=== PATIENT | female | born 1960 | race Caucasian/White ===

== ENCOUNTER → 2022-08-02 | Outpatient (CLI) | payer OTHER, SELFPAY ==
--- NOTE | 2022-08-02 08:22 | CR.ITP_ITS ---
Diagnosis - General Information Admitting Diagnosis: S/P NSTEMI myocardial Infarction, Left Sublclavian stenosis w/stenting, PCI w/coronary stenting. Secondary Diagnosis: Bilateral Carotid Stenosis, Peripheral Vascular Disease Personal Learning Style:: Audio/Visual, Written Barriers to Learning: Vision Impairment Stage of change r/t lifestyle modifications:: Action Gave educational material for:: Treating Heart Disease, Emotions & Heart Disease, Stress Management & Relaxation, Sleep Disorders & Heart Disease, How The Heart Works, What it means to have Heart Disease, How Coronary Artery Dis ease is Diagnosed, Heart Procedures, What Heart Medications Do, Risk Factors & Modifications, Living an Active Life, Nutrition - Education/Goals Individual Counseling: Initial Assessment: Nicotine/Smoking, Abnormal Cholesterol Levels, High Blood Pressure, Overweight/Obesity Cardiac Rehabilitation Goals: 1. Maintain the individual as the primary focus of care. 2. To improve the patient's quality of life. 3. Identification of cardiac risk factors and provide cardiac risk factor management. 4. Enhance the psychosocial status of the patient. 5. Reconditioning enough to allow the patient to resume customary activities. 6. Control symptoms of cardiac disease Personal Goals: Initial Assessment: Improve energy level, Get back to work, or to resume activities faster, Improve muscle strength and endurance Scale for measuring improvement of personal goals: Enter appropriate number in Comments. 2 = Unchanged. 3 = Slightly Better. 4 = Moderate Improvement. 5 = Met my Goal - Diagnosis & Disease Process Outcomes/Goals: Pt IDs own risk factors & lifestyle modifications by Session 10, Verbalizes symptoms of angina & response by session 3., Pt independently manages Plan/Interventions: Assist Pt to ID & engage in lifestyle modification to reduce CVD risk, Instruct on individual risk factors, Review symptoms of angina & emergency actions, Review secondary diagnosis & identify educational needs. - Safety Referral to Physical Therapy: No Referral to [facility] Case Management: No Fall Risk Assessed:: Yes Assistive Devices:: None Exercise - Initial Assessment - Visit Date of Eval: 08/02/22 Session #:: 0 - Pre-cardiac rehab evaluation Mets: Pre-: >7 METS for 30 minutes by discharge - Physician Prescribed Exercise Modalities: Treadmill, Airdyne, NuStep Frequency: 3x/week for 12 weeks [36 sessions] Intensity: 60-80% of age predicted maximum heart rate reserve Duration: 30 - 45 minutes Current METSs:: 3.0 Target Heart Rate:: 103-119 Resting Blood Pressure: 111/52 EKG Type: Sinus Rhythm (hx of paroxysmal atrail fibrillation noted) - Outcomes & Goals Goals:: Verbalizes understanding of THR, RPE & goal METS by session 6, Documents in home exercise log/reports 30 min aerobic 5 day/wk by DC, Demonstrates accurate pulse taking by DC - Intervention & Plan Exercise Program Goals: Instruct on personal THR & RPE, Instruct on MET level & personal MET goal, Show patient to take own pulse /validate performance until accurate, Instruct on home exercise - Physical Activity Home Exercise Physical Activity - Home Exercise: Safe Exercise, Warm-up, Self-monitoring, Cool-Down, Home Exercise > 30 min Daily, Sitting Time <3 hours/daily - Outcomes & Goals Outcomes/Goals: Demonstrates correct Warm-up/exercise Cool-Down (S3) if = 2.5 METs, Verbalizes symptoms of exercise intolerance by Session 3 (S3), Demonstrate safe equipment use (S3) & follows exercise prescrition (6) - Intervention & Plan Plan/Intervention: Instruct warm-up & cool-down if exercising at > 2 METs, Instruct on symptoms of exercise intolerance & actions to take, Instruct & monitor on saf, Assess intial functional capacity & safety risk Nutrition - Initial Assessment - Program Goals Nutrition Program Goals: LDL <100 optimal. 100 - 129 Near optimal. 130 - 159 Borderline High. 160 - 189 High. Total Cholesterol <200 desirable. 200 - 239 Borderline High. >/= 240 High. HDL < 40 Low >/=60 High. Triglycerides <150 desirable. <199 optimal. VlDL 5 - 40. HgbA1C <7%. BMI <25 Patient has diagnosis of Hyperlipidemia (ICD E78)?: Yes - Visit Date of Assessment:: 08/02/22 Session #:: 0 - Pre-cardiac Rehab evaluation - Cholesterol/Lipids (Other Core Measures) Determine presence & major risk factors that modify LDL goal: Cigarette smoking, Hypertension or hypertensive medication, Age men > 45 years; women >/= 55 years Outcomes/Goals: Pt IDs own risk factors & lifestyle modifications by Session 10, Verbalizes symptoms of angina & response by session 3., Pt independently manages Intervention/Plan: Instruct on personal lipid levels & lipid goals/NCEP guidelines, Instruct on cholesterol Referral to dietitian:: Yes - Diabetes (Other Core Measures) Diabetes Type: Not Applicable - Weight Mgt (Other Care) Not Applicable: No Height: 5 ft 2 in Weight:: 207 lb BMI: 37.8 Diagnosis Overweight/Obesity BMI> 30% ICD-10 E66: Yes Diagnosis High BMI/Morbid Obesity BMI> 35% ICD-10 Z68: Yes Outcomes/Goals: Pt sets, maintains & shows weight loss goal & trend during rehab Intervention/Plan: Instruct on ideal BMI & set weight loss goal w/patient, Assist pt to ID & incorporate diet changes for weight loss by S9, Refer to Structured Weight Loss program as appropriate, Encourage goal of using 250- 300dcal per session for weight loss - Healthy Eating Habits Will attend diet classes:: Yes Outcomes/Goals:: Consume diet rich in vegs,fruits,whole grain/high fiber,fish,lean meat, Limit sat/trans fats,cholesterol & added salts & sugars Intervention/Plan:: Assess current eating habits - Education Gave educational materials for:: Healthy eating Nutrition - 30-Day Assessment Nutrition - 60-Day Assessment Nutrition - 90-Day Assessment Nutrition - Final Assessment Core - Initial Assessment - Visit Date of Eval: 08/02/22 Session #:: 0 - Pre-cardiac Rehab evaluation - Medication Compliance Preventative Medication(s):: Aspirin, Clopidogrel/P2Y12 inhibit, Statin/lipid, Beta alysha H/O mental health issues: depression, anxiety, or addiction?: No Doesn?t believe in the benefits of treatment?: No Believes medications are unnecessary or harmful?: No Has a concern about medication side effects?: No Expresses concern over the cost of medications?: No Outcomes/Goals: Verbalizes medications,desired effect & common side effects @ DC, Pt self-reports following medication regimen, Keeps card in wallet w/medications listed by DC Interventions/plans: Instruct on medication effects & side effects, Review medication list w/patient every two weeks, Instruct importance of taking meds as ordered & assist problem solving - Tobacco Use Tobacco Use: Cigarettes How many cigarettes do you smoke per day?: 20 - recently quit 06/23/2022 Do you use smokeless tobacco?: No Outcomes/Goals: Smoking cessation achieved or maintained by discharge, Identify aids/strategies for achieving smoking cessation by session 6 Interventions/plan: Instruct on effects of smoking & provide smoking cessation resource, Assist pt to set quit date & provide encouragement, Assist pt to develop strategies to achieve/maintain quit date, Assist pt w/nicotine replacement & medication for cessation success - Currently using Nicoderm CQ 7mg patch 24Hours - Hypertension Hypertension Diagnosis:: Hypertension ICD-10 I10 Resting Blood Pressure:: 111/52 [employer] Hypertension Guidelines: [place] [employer] Hypertension Guidelines. Normal BP Less than 120/80. Elevated BP 120/80. Hypertension Stage 1: BP 130-139/80-89. Hypertesnion Stage 2: BP 140 or higher/90 or higher. Hypertension Crisis: BP higher than 180/120 Outcomes/Goals: Able to verbalize/achieve optimal blood pressure <130/80, Incorporates diet changes & exercise for blood pressure control by DC Interventions/plan: Instruct on optimal blood pressure, hypertension & medications, Instruct on effects of sodium, alcohol, stress, exercise &hypertension - Tobacco Cessation Referral Smoking Cessation Referral:: No Individual Education/Counseling:: No Education Schedule Given:: Yes Core - 30-Day Assessment Core - 60-Day Assessment Core - 90 Day Assessment Core - Final Assessment Psychosocial - Initial Assess - VIsit Date of Eval: 08/02/22 Session #:: 0 - Pre-cardiac rehab Evaluation Not Applicable: Yes History of previous Mental disease:: No - Psychosocial Test Tool Used:: Reagan Blackwood QOL Cardiac, PHQ-9 Questionnaire phq-9 Severity: Severity. 1-4 Minimal Depression. 5-9 Mild Depression. 10-14 Moderate Depression. 15-19 Moderately Sever Depression. 20-27 Severe Depression. Rule: - Referral to Behavioral Health PS - Interventions: Yes Attend Stress Management Classes, No Referral to Behavioral Health if PHQ-9 score >9:, No Referral to [facility], No Referral to Physician if PHQ-9 if score is 5-9: - Outcomes/Goals: See list Psychosocial Outcomes/Goals:: ID's personal stressors & 2 strategies to manage stress by discharge - Intervention/Plan: See List Interventions/Plan:: Assess stressors,coping strategies & signs of derpression on admission, Instruct/assist pt to develop coping & personal stress Mgt strategies, Instruct patient to recognize signs & symptoms of depression, Instruct patient to recog Psychosocial - 30-Day Assess Psychosocial - 60-Day Assess Psychosocial - 90-Day Assess Psychosocial - Final Assessmen Patient Health Questionnaire Initial Assessment 1. Little interest or pleasure in doing things: Not at all 2. Feeling down, depressed, or hopeless: Not at all 3. Trouble falling or staying asleep, or sleeping too much: Nearly every day 4. Feeling tired or having little energy: More than half the days 5. Poor appetite or overeating: Not at all 6. Feeling bad about yourself -- or that you are a failure or have let yourself or your family down: Not at all 7. Trouble concentrating on things, such as reading the newspaper or watching television: Not at all 8. Moving or speaking so slowly that other people could have noticed. Or the opposite - being so fidgety or restless that you have been moving around a lot more than usual: Not at all 9. Thoughts that you would be better off , or of hurting yourself in some way: Not at all How difficult have these problems made it for you to do your work, take care of things at home, or get along with other people?: Not difficult at all Total Score: 5 YOHAN-Q SV Test - Statements CAD is a disease of the arteries in the heart: False Examples of risk factors for heart disease: True Angina is chest pain or discomfort: True The benefits of resistance training include: True Eating more meat and dairy products: False Anti-platelet medications such as aspirin are important: True The only effective way to manage stress: False An exercise warm-up slowly increases heart rate: True Prepared, processed foods usually have high sodium: True Depression is common after a heart attack: True The statin medications lower cholesterol: True To control blood pressure, lower the amount of sodium: True If someone gets chest discomfort during walking: False Transfats are partially hydrogenated vegetable oils: True Sleep apnea that is not treated increases the risk: False To control cholesterol, one should become a vegetarian: False Someone knows if he/she is exercising at the right level: True Diabetes cannot be prevented with exercise & health eating: False Stress is a large risk for heart attack: True A diet that can help lower blood pressure is rich in: True - Total Score Total Correct Responses: 20 Self-Efficacy Initial Assessment We would like to know how confident you are in doing certain activities. Please select your confidence level for:: Select your confidence level for the following using the scale 1-10 where 1 is not at all confident and 10 is totally confident. Your score is the average of all 6 responses. Fatigue: How confident are you that you can keep the fatigue caused by your disease from interfering with the things you want to do? Select Number: 9 Physical Discomfort or Pain: How confident are you that you can keep the physical discomfort or pain of your disease from interfering with the things you want to do? Select Number: 9 Emotional Distress: How confident are you that you can keep the emotional distress caused by your disease from interfering with the things you want to do? Select Number: 10 Other Symptoms or Health Problems: How confident are you that you can keep other symptoms or health problems from interfering with the things you want to do? Select Number: 10 Different Tasks and Activities: How confident are you that you can do the different tasks and activities needed to manage your health condition so as to reduce your need to see a doctor? Select Number: 1 Medication: How confident are you that you can do things other than just taking medication to reduce how much your illness affects your everyday life? Select Number: 1 Total Score:: 6 Nutrition Survey - Nutrition Survey Initial Have you lost >10 lbs over the past 2 months without trying?: No Are you following a special diet at home for diabetes, low fat, or low salt?: No Are you interested in meeting with a dietitian for help understanding your diet?: No Do you eat less than 3 meals a day?: Yes Do you eat fatty meats (costa, sausage, ribs, etc), fried foods, desserts, large amounts of salad dressings, margarine, butter, or cheese most days?: Yes Do you have food allergies? [Enter types in comment field]: No Do you eat in restaurants more than 3 times a week?: No Do you season food with salt, seasoning salt, or garlic salt?: No Do you used canned, boxed, frozen meals, or soups, seasoning packets?: Yes Total Score:: 3
--- NOTE | 2022-08-02 08:22 | PCM.CR.HP2 ---
CR - History & Physical - General Arrival date:: 08/02/22 - Arrival time:: 08:22 Date of Referral:: 07/19/22 Date of CR Evaluation:: 08/02/22 Referring Physician: Dr. Marah Casanova ([facility]) Primary Diagnosis: NSTEMI, PCI w/coronary stenting - History of Present Cardiac Event Onset Date: Enter Onset Date of cardiac illnesses in Comment field below Acute Myocardial Infarction within 12 months:: Yes - 08/02/2022 PTCA or coronary stenting:: Yes - 08/02/2022 Interventions with present event:: Also had left subclavian stenting, ultrasound of aortic valve scheduled Were there any complications?: Blood loss unanticipated, readmitted 2 weeks discharge for bronchitis - Sleep Disorder Evaluation Hx of Sleep Apnea: No Do you snore loudly (louder than talking or can be heard through closed doors)?: Yes Do you often feel tired/ fatigued/ sleepy during daytime?: Yes Has anyone observed you stop breathing during sleep?: No History of Hypertension (for STOP score): Yes STOP Results: Positive - Medications Home Medications: Ambulatory Orders Medication Instructions Recorded acetaminophen 325 mg tablet 325 - 650 mg PO Q6H PRN Pain 08/02/22 (Tylenol) aspirin 81 mg tablet 81 mg PO DAILY 08/02/22 carvedilol 12.5 mg tablet 12.5 mg PO BID 08/02/22 ezetimibe 10 mg tablet (Zetia) 10 mg PO DAILY 08/02/22 furosemide 20 mg tablet (Lasix) 20 mg PO DAILY PRN Edema 08/02/22 isosorbide mononitrate 30 mg 30 mg PO DAILY 08/02/22 tablet,extended release 24 hr losartan 50 mg tablet (Cozaar) 50 mg PO DAILY 08/02/22 nicotine 7 mg/24 hr daily 1 patch transdermal Q24H 08/02/22 transdermal patch (Nicoderm CQ) - Allergies Allergies/Adverse Reactions: Allergies morphine Allergy (Verified 08/02/22 08:34) Rash niacin Allergy (Verified 08/02/22 08:34) Pain in joints Advanced Directives - Advanced Directives 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 - is her POA for Healthcare Living Will: Yes Advance Directives Information Provided: No Advance Directives on File: No DNR Order?:: No - MOLST See MOLST form: No Past Medical History - Covid-19 Screening Fever: No Unexplained muscle aches: No Current respiratory symptoms: No Upper respiratory infections symptoms: No Gastro-intestinal symptoms: No Uls-Foyp-Ddwyah symptoms: No Has tested positive for COVID-19 in last 30 days: No Date of testin08/02/22 - not vaccinated Had contact w/person w/symptoms or Covid-19 (+) last 14 days: No Has High Risk Exposures ID'd by Health dept/Inf Control team: No 65 years or older:: No Lives in Assisted Living facility:: No Has a chronic lung disease or moderate to severe asthma:: No Has a serious heart condition:: Yes Immunocompromised:: No Severely obese (Body Mass Index of 40 or higher):: No Diabetic:: Yes Has chronic kidney disease undergoing dialysis:: Yes Has liver disease:: No - Past Medical Illness Medical History: Past Medical History (Last Updated 08/02/22 @ 08:53 by Julio Tobias CRT, ORAL HYGIENIST, BS) Aortic stenosis I35.0 Bilateral carotid artery stenosis without cerebral infarction I65.23 Coronary artery disease I25.10 Hypertension I10 Infrarenal abdominal aortic aneurysm (AAA) without rupture I71.43 Mixed hyperlipidemia E78.2 Non-STEMI (non-ST elevated myocardial infarction) Onset Date: ~06/23/22 I21.4 Paroxysmal A-fib I48.0 Peripheral vascular disease I73.9 Statin intolerance Z78.9 Subclavian artery stenosis, left I77.1 Tobacco dependence due to cigarettes F17.210 - Past Surgical History Surgical History: Past Surgical History (Last Updated 08/02/22 @ 08:39 by Julio Tobias CRT, ORAL HYGIENIST, BS) Postsurgical percutaneous transluminal coronary angioplasty (PTCA) status Z98.61 Stented coronary artery Z95.5 Social History - Smoking History Smoking Status: Current every day smoker Years Smokin Packs Smoked per Day: 1 Hx Smoking Cessation Date: 06/23/22 Hx Tobacco Use: Yes Hx Smoking Exposure: Yes - Alcohol Use Alcohol Usage: Yes - rare occasions ([employer] Wine/ - Substance Abuse Hx Substance Use: No - Occupation Occupation (List type of work in comments):: 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 - Hobbies, Recreation, Social Activities Hobbies: Other - Piano, gardening, active in adventism, choir, [employer] studies Recreational Activities: I am able to engage in all my recreational activities - take my time/takes me longer to do them Social Environment - Status Marital Status: - Current Living Arrangements Living Environment:: Spouse - Children How many children do you have?: 2 Do any of your children live nearby?: No - [facility] - Safety Do you feel safe in your surroundings?: Yes - Assistance Do you need any assistance at home?: no Review of Systems - Review of Systems Hints: Right click = Denies ([place]ash). Left click = Reports ([place]) Review of Present Symptoms: Reports: Shortness of Breath at Rest - sometimes, Shortness of Breath with Exertion - usually related to activity; after about 30 minutes gardening heart rate increases and is short of breath, Angina - upper back shoulder mid-spine back; relieves with rest. Very similar to the same pain related to the NSTEMI, Dizziness/Lightheadedness, Fatigue, Heart Arrhythmia/Irregularities - Hx of Atrial Fibrillation (paroxysmal), Appetite - Normal. Denies: Appetite - Special Diet, Sleep - Normal, Sexual Changes - Pain Is Patient Pain Free?: Yes Pain Location: none, back - Low back pain., upper extremity - upper back shoulder mid-spine back; relieves with rest. Very similar to the same pain related to the NSTEMI Risk Factor Assessment - Vital Signs Temperature: 97.9 F Respiratory Rate: 14 Pulse Ox: 95 Blood Pressure: 111/62 - Pulse Pulse Rate: 70 Pulse Rhythm: Regular - Hypertension Blood Pressure Sitting - Left Arm: 111/62 - Obesity Height: 5 ft 2 in Weight:: 207 lb Weight in Pounds: 207.0 lbs Weight Source: Stated by Patient Body Mass Index (BMI): 37.8 Nutritional Referral for Obesity: Yes - Physical Inactivity Physical Inactivity: Reg Exercise 30 min/day - gardening, Recreational activity - [place], adventism activity, bible study - Risk Stratification Risk Guidelines: Lowest Risk: Risk Factor for Dyslipidemia, Risk Factor for Diabetes, Risk Factor for Hypertension, Risk Factor for Sedentary Lifestyle, Risk Factor for Depression, Moderate Risk: Risk Factor for Sedentary Lifestyle, Highest Risk: Risk Factor for Smoking - Recently quit 06/23/2021, Nicoderm 7mg NRT, Risk Factor for Obesity - BMI 37.9 Motivation - Motivation to Participate On a scale of 1 to 10, how prepared are you to commit to attending program?: 7 - Dr. Casanova encouraged me to do this What do you see as barriers to successfully being able to complete the program?: distance and time What do you see as the benefits of succesfully completing the program? In other words, what do you hope to get out of participating in the program?: Make my doctor happy; getting greater stamina Are there issues you are dealing with that will interfere with completing the program?: Series of test in August; depending on outcome may percipitate participation Do you have a spouse or signficant other, family or friends who will help support you to complete the program?: Yes
[2022-08-02 09:17] VITALS: BP 111/62; PULSE 70; RESP 14; TEMP 36.6; O2SAT 95; BMI 37.8
[2022-08-02 09:54] VITALS: BP 111/52; BMI 37.8
== END | disposition home or self-care (01) ==
PROVIDERS: PCP Family Medicine
DX: Z95.5 Presence of coronary angioplasty implant and graft (principal); I71.43 Infrarenal abdominal aortic aneurysm, without rupture; I73.9 Peripheral vascular disease, unspecified; I77.1 Stricture of artery; I48.0 Paroxysmal atrial fibrillation; I21.4 Non-ST elevation (NSTEMI) myocardial infarction; R06.83 Snoring; R53.83 Other fatigue; I10 Essential (primary) hypertension; I35.0 Nonrheumatic aortic (valve) stenosis; I65.23 Occlusion and stenosis of bilateral carotid arteries; I25.10 Atherosclerotic heart disease of native coronary artery without angina pectoris; E78.2 Mixed hyperlipidemia; Z78.9 Other specified health status; F17.210 Nicotine dependence, cigarettes, uncomplicated; R06.02 Shortness of breath; M54.9 Dorsalgia, unspecified; R42 Dizziness and giddiness

== ENCOUNTER 2022-08-10 08:18 | Emergency (ER) | payer OTHER, SELFPAY ==
[2022-08-02 09:54] VITALS: BMI 37.8
[2022-08-10 08:20] VITALS: BP 169/145; PULSE 91; RESP 18; TEMP 36.4; O2SAT 97
[2022-08-10 08:36] VITALS: BMI 38.5
[2022-08-10 08:37] VITALS: BP 134/75; PULSE 88; RESP 20; O2SAT 96; O2SAT 97
--- NOTE | 2022-08-10 08:44 | EKG12_ITS ---
Test Reason : SOB Blood Pressure : / mmHG Vent. Rate : 081 BPM Atrial Rate : 081 BPM P-R Int : 148 ms QRS Dur : 090 ms QT Int : 356 ms P-R-T Axes : 051 044 064 degrees QTc Int : 413 ms Normal sinus rhythm Normal ECG Confirmed by NEAL SALGUERO, KAYDEN ([id number]), assistant editor SD HELM ([id number]) on 08/12/2022 9:33:36 AM Referred By: BB Confirmed By:KAYDEN DE JESUS MD
[2022-08-10 08:46] VITALS: O2SAT 95
--- NOTE | 2022-08-10 08:46 | ED.VIS.DYS ---
HPI History of Present Illness Chief Complaint: Shortness of Breath Detail of Chief Complaint: Wheezing cough. Informant: patient Onset/Context/Timing Onset: Weeks Context: gradual Timing: Intermittent Quality: Positive for Dyspnea on exertion and Wheezing Current Severity: Mild Worsened by: Exertion, Lying flat and Coughing Relieved by: Rest Associated Symptoms cough and green sputum; Negative for fever Chest Pain: Positive for None Narrative Narrative: 62-year-old female has a history of at least 1 PA, CAD, stents hypertension, A-fib, AAA and possible undiagnosed COPD. She had a long smoking history just quit about a month ago. For the last 2 to 3 weeks she has had primarily nonproductive cough at times green sputum. Wheezing and shortness of breath. Today she was in cardiac rehab had an episode and he sent her to the ER to be evaluated. She has had episodes like this before they worked her up with him a cardiac and a PE standpoint. She is never had a DVT or PE. She has had a CTA recently which was negative. She has been treated as a respiratory infection with Zithromax and doxycycline. She has been treated with steroids and inhalers. She has also been treated as possibly a CHF flare. PE Risk Factors: Negative for Cancer, OCP + Smoking + > 35, Prior DVT or PE, Recent immobilization, Recent surgery or Recent travel Prior similar symptoms: Yes Recent Illness/Hospitalization: Yes [facility] Medical History Aortic stenosis Bilateral carotid artery stenosis without cerebral infarction Coronary artery disease Hypertension Infrarenal abdominal aortic aneurysm (AAA) without rupture Mixed hyperlipidemia Non-STEMI (non-ST elevated myocardial infarction) (~06/23/22) Paroxysmal A-fib Peripheral vascular disease Statin intolerance Subclavian artery stenosis, left Tobacco dependence due to cigarettes Home Medications acetaminophen 325 mg tablet (Tylenol) 325 - 650 mg PO Q6H PRN Pain 08/02/22 [History Last Taken Unknown] aspirin 81 mg tablet 81 mg PO DAILY 08/02/22 [History Last Taken Unknown] carvedilol 12.5 mg tablet 12.5 mg PO BID 08/02/22 [History Last Taken Unknown] ezetimibe 10 mg tablet (Zetia) 10 mg PO DAILY 08/02/22 [History Last Taken Unknown] furosemide 20 mg tablet (Lasix) 20 mg PO DAILY PRN Edema 08/02/22 [History Last Taken Unknown] isosorbide mononitrate 30 mg tablet,extended release 24 hr 30 mg PO DAILY 08/02/22 [History Last Taken Unknown] losartan 50 mg tablet (Cozaar) 50 mg PO DAILY 08/02/22 [History Last Taken Unknown] nicotine 7 mg/24 hr daily transdermal patch (Nicoderm CQ) 1 patch transdermal Q24H 08/02/22 [History Last Taken Unknown] Allergy/AdvReac Type Severity Reaction Status Date / Time morphine Allergy Rash Verified 08/02/22 08:34 niacin Allergy Pain in Verified 08/02/22 08:34 joints Surgical History Postsurgical percutaneous transluminal coronary angioplasty (PTCA) status Stented coronary artery Social History Smoking Status: Former smoker ROS ROS ED ROS Narrative Cough, wheezing, shortness of breath. Review of Systems ROS Unobtainable: Denies due to encephalopathy Constitutional Constitutional ED: Denies chills or fever(s) Eyes Eyes: Denies blurry vision ENT ENT ED: Denies ear pain Cardiovascular Cardiovascular: Denies chest pain Respiratory/Chest Respiratory/Chest: Reports cough and dyspnea Gastrointestinal Gastrointestinal: Denies abdominal pain Genitourinary Genitourinary ED: Denies dysuria Musculoskeletal Musculoskeletal: Denies arthralgias Integumentary Denies abscess Neurologic Neurologic: Denies headache(s) Psychiatric Psychiatric: Denies anxiety Endocrine Endocrinology: Denies cold intolerance Hematologic/Lymphatic Hematologic/Lymphatic: Denies easy bleeding or easy bruising Allergic/Immunologic Allergic/Immunologic ED: Denies mouth swelling EXAM Physical Exam Narrative Exam Narrative: 62-year-old female no acute distress. Vital signs stable afebrile. Pulse ox 96% on room air no hypoxia. H EENT exam unremarkable. Neck nontender no JVD. Lungs coarse breath sounds bilaterally. Expiratory wheezes throughout. No rales or rhonchi. Heart regular rhythm rate about 90 no murmur. Chest wall nontender. Abdomen soft nontender. Back unremarkable. Moving all 4 extremities. Calves are nontender without edema or cords. She is awake and alert. Const Vital Signs: 08/10/22 08:20 08/10/22 08:37 08/10/22 08:37 Temperature 97.6 F L Temperature Source Temporal Pulse Rate 91 88 Respiratory Rate 18 20 H Respiratory Effort Short of Breath Respiratory Pattern Tachypnea Blood Pressure 169/145 H 134/75 H Blood Pressure Mean 153 94 Pulse Ox 97 96 Oxygen Delivery Method Room Air Room Air Room Air 08/10/22 08:46 08/10/22 08:54 08/10/22 10:27 Temperature Temperature Source Pulse Rate 77 64 Respiratory Rate 18 18 Respiratory Effort Respiratory Pattern Normal Blood Pressure 109/69 Blood Pressure Mean 82 Pulse Ox 95 97 Oxygen Delivery Method Nasal Cannula Room Air Positive well nourished and well developed; Negative for cachectic, contractures or unkempt General Appearance ED: well developed and NAD; Negative for unkempt, cachectic, contractures or pallor Nutritional Appearance: Negative for cachectic HEENT Reports moist mucous membranes; Denies dry mucous membranes atraumatic; Negative for trauma or tenderness Mouth ED: No dry mucous membranes Mouth: No dry mucous membranes Eyes PERRL and EOMs intact bilaterally General Eye ED: Negative for pale conjunctiva, scleral icterus or other Neck no lymphadenopathy, supple, no meningeal signs and no JVD Lymph Lymphatic: Negative for other Chest Wall Chest: Negative for other Resp normal respiratory effort and No clear to auscultation bilaterally Auscultation: wheezes; Negative for rales or rhonchi Cardio regular rate, regular rhythm, S1 normal heart sound, S2 normal heart sound and no murmurs Rate: Negative for bradycardia or tachycardic GI non-tender, non-distended and no masses Inspection: Negative for other Auscultation: normoactive bowel sounds Palpation: soft; Negative for tender or guarding Bladder / Kidney Exam: No other Back/Spine no CVA tenderness and normal to inspection General Back: Negative for CVA tenderness or tenderness Extremity normal to inspection General Extremety ED: Negative for edema, tenderness or other findings General Extremity: Negative for edema or other findings Neuro oriented x3, CN's II-XII intact bilaterally and no sensory deficits noted Ramiro Coma Scale: document GCS findings Sensorium / Orientation: oriented to person and oriented to place; Negative for alert, oriented to time, orientation impaired, confused, lethargic or stuporous Speech: speech normal Gait (Neuro): Negative for normal gait Motor Exam: strength 5/5 throughout Psych mental status grossly normal Appearance: Negative for unkempt Attitude: No agitated Mood & Affect: Negative for depressed Thought Process: normal thought process Skin no wounds and skin turgor normal General Skin Exam: Negative for jaundice or pallor Lesions: no lesions Rashes: no rashes Trauma: Negative for abrasion or laceration MDM MDM MDM Narrative Medical decision making narrative: 62-year-old with cardiac disease most likely underlying COPD with wheezing and shortness of breath. Ongoing cardiac work-up. Clinically this does not seem to be a PE and she has had negative work-ups for this before in the past. She will be treated with aerosols and steroids and reassessed. Repeat exam patient is doing well at 10:45 AM. Wheezing resolved after aerosol treatments and oral steroids. She and I went over her test results. She is comfortable being discharged home. Feeling better. This will be treated as a COPD flare. Her primary care physician's office has written her to get pulmonary function testing and have encouraged her to follow-up with a venetian blind machine operator in her home area which is [facility]. She will be written for prednisone 40 mg a day for 7 days. History & Record Review Discussion w/independent historian: Patient Lab Data Attestation: I reviewed the patient's lab results. Lab results narrative: CBC shows a white count of 15.2. H&H of 13.8 and 41. Platelets 412. Electrolytes unremarkable gap of 7 BUN and creatinine of 30 and 0.9. Glucose 108. Troponin 7. BNP 48. Labs: Laboratory Results - last 24 hr 08/10/22 08/10/22 08/10/22 08:38 08:38 08:38 WBC 15.2 H RBC 4.54 Hgb 13.8 Hct 41.1 MCV 90.5 MCH 30.4 MCHC 33.6 RDW Std Deviation 45.4 H RDW Coeff of Faith 13.7 Plt Count 412 MPV 10.0 Immature Gran % (Auto) 0.300 Neut % (Auto) 50.3 Lymph % (Auto) 36.3 Meriwether % (Auto) 6.3 Eos % (Auto) 6.3 H Baso % (Auto) 0.5 Absolute Neuts (auto) 7.7 Absolute Lymphs (auto) 5.51 H Nucleated RBC % 0 Differential Comment COMMENT Sodium 137 Potassium 3.9 Chloride 103 Carbon Dioxide 27.0 Anion Gap 7 BUN 30 H Creatinine 0.91 Estim Creat Clear Calc 51.35 Est GFR (MDRD) Af Amer 81 Est GFR (MDRD) Non-Af 67 BUN/Creatinine Ratio 33.0 H Glucose 108 H Calcium 9.4 Troponin I High Sens 7 B-Natriuretic Peptide 48.9 Radiography Chest X-Ray - ED: 1 View, Read by ED Physician, Read by Radiologist, Heart, Lungs, Mediastinum, Bony Structures, No Acute Disease and Chronic Changes Diagnostic Testing: Clinical Impression(s) from Imaging Studies Chest X-Ray 08/10/22 09:30 IMPRESSION: No acute abnormalities. Electronically Signed: Abdon Dwyer MD at 10:01 EDT , Chest x-ray, portable, single view interpreted by myself and radiologist shows no acute abnormality. We agreed. Rhythm Strip Rhythm Strip: Sinus Rhythm Rate: 81 Ectopy: None EKG Initial EKG: Attestation: I personally reviewed and interpreted this EKG as follows: Interpretation: Sinus Rhythm and No Acute Injury Pattern Comments: Normal sinus rhythm rate 81 no acute signs of PA or ischemia. Discharge Plan Triage Chief Complaint: Shortness of Breath ED Provider: Evens Reyna Dx/Rx/DC Orders Clinical Impression: COPD with acute exacerbation, History of CAD (coronary artery disease), History of hypertension Instructions: ED COPD Flare Prescriptions: No Action furosemide [Lasix] 20 mg Tablet 20 mg PO DAILY PRN (Reason: Edema) losartan [Cozaar] 50 mg Tablet 50 mg PO DAILY acetaminophen [Tylenol] 325 mg Tablet 325 - 650 mg PO Q6H PRN (Reason: Pain) carvedilol 12.5 mg Tablet 12.5 mg PO BID Rx Instructions: must administer with a meal/food isosorbide mononitrate 30 mg Tablet Extended Release 24 Hr 30 mg PO DAILY aspirin 81 mg Tablet 81 mg PO DAILY nicotine [Nicoderm CQ] 7 mg/24 hr Patch 24 Hour 1 patch TRANSDERMAL Q24H ezetimibe [Zetia] 10 mg Tablet 10 mg PO DAILY Primary Care Provider: Amado Coulter Referrals: Ludin Limon MD [Med Staff - Active Staff] - As soon as possible Amado Coulter MD [Primary Care Provider] - As soon as possible Activity Restrictions/Additional Instructions: Follow-up with your primary care physician and get referred to a local venetian blind machine operator in your area. I will give you a venetian blind machine operator here but you might be able find one closer to your house. I suspect this is from underlying COPD. Prednisone 40 g a day for 1 week. Use your inhaler as needed. Follow-up with the venetian blind machine operator. Disposition Disposition: Home, Self Care
[2022-08-10] MEDS: Albuterol 2.5 MG/3 ML VIAL.NEB. INHALATION (08:53)
[2022-08-10] MEDS: Ipratropium/Albuterol Sulfate 3 ML AMPUL.NEB INHALATION (08:53)
[2022-08-10 08:54] VITALS: PULSE 77; RESP 18
[2022-08-10 09:02] LABS: Absolute Lymphocyte Count 5.51 X10^3/uL (0.83-4.51); Absolute Neutrophil Count 7.7 X10^3/uL (2.0-7.7); Basophil# 0.08 X10^3/uL; Basophil% 0.5 % (0-1); Eosinophil# 0.95 X10^3/uL; Eosinophils% 6.3 % (0-5); Hematocrit 41.1 % (37-47); Hemoglobin 13.8 g/dL (12.0-15.0); Lymphocyte # 5.51 X10^3/ul (0.83-4.51); Lymphocyte % 36.3 % (19-41); Mean Corp Hgb Conc 33.6 g/dL (32-36); Mean Corpuscular Hgb 30.4 pg (27.0-32.0); Mean Corpuscular Volume 90.5 fL (81-99); Monocyte# 0.95 X10^3/uL; Monocyte% 6.3 % (0-10); NRBC Flagged by Analyzer 0 % (0-5); Neutrophil # 7.67 X10^3/uL (2.7-7.7); Neutrophil % 50.3 % (47-70); POSITIVE DIFFERENTIAL YES; Platelet Count 412 K/mm3 (150-450); RBC Distribution Width CV 13.7 % (11.6-14.6); RBC Distribution Width SD 45.4 fl (35.1-43.9); Red Blood Count 4.54 M/mm3 (4.2-5.4); White Blood Count 15.2 K/mm3 (4.4-11.0)
[2022-08-10] MEDS: predniSONE 20 MG Tablet 60 MG PO (09:03)
[2022-08-10 09:21] LABS: BNP,B-Type NATRIURETIC PEPTIDE 48.9 pg/mL (0-100)
[2022-08-10 09:24] LABS: Anion Gap 7 (5-15); BUN 30 mg/dL (7-18); Calcium,Total 9.4 mg/dL (8.5-10.1); Chloride 103 mmol/L (98-107); Creatinine, Serum 0.91 mg/dL (0.55-1.02); EST Glomerular Filtration Rate 67 mL/min (>60); Est Glom Filt Rate - Afr Amer 81 mL/min (>60); Estimated Creatinine Clearance 51.35 ml/min; Glucose 108 mg/dL (74-106); Potassium 3.9 mmol/L (3.5-5.1); Sodium Level 137 mmol/L (136-145); Troponin-I HS 7 pg/mL (3.0-54.0)
[2022-08-10 09:25] LABS: Differential Indicated SCAN CRITERIA MET
--- NOTE | 2022-08-10 09:30 | RAD_ITS ---
STUDY: X-RAY CHEST REASON FOR EXAM: Female, 62 years old. Chest pain TECHNIQUE: Single AP portable view of the chest. COMPARISON: None. FINDINGS: EKG electrodes are seen. Surgical clips are seen in the medial aspect of the right lung apex. The lungs are clear and expanded. There is no demonstrated pleural abnormality. Normal size heart. Normal mediastinum and best. Normal visualized pulmonary arteries. There is atherosclerotic calcification of the aortic arch with tortuosity. There are diffuse degenerative changes of the visualized thoracic spine. Calcific tendinitis of the left shoulder. There is no demonstrated abnormality of the visualized soft tissue structures of the upper abdomen. RAD/Chest 1 View (Portable) IMPRESSION: No acute abnormalities. Electronically Signed: Abdon Dwyer MD at 10:01 EDT ,
[2022-08-10 10:27] VITALS: BP 109/69; PULSE 64; RESP 18; O2SAT 97
[2022-08-10 11:03] VITALS: BP 109/67; PULSE 72
== END 2022-08-10 11:04 | disposition home or self-care (01) ==
PROVIDERS: Emergency Provider Emergency Medicine; PCP Family Medicine; Visit Provider Emergency Medicine
DX: J44.1 Chronic obstructive pulmonary disease with (acute) exacerbation (principal); Z87.891 Personal history of nicotine dependence; I25.10 Atherosclerotic heart disease of native coronary artery without angina pectoris; E78.2 Mixed hyperlipidemia; I10 Essential (primary) hypertension; Z79.82 Long term (current) use of aspirin; I25.2 Old myocardial infarction; I5A Non-ischemic myocardial injury (non-traumatic); Z95.5 Presence of coronary angioplasty implant and graft
CPT/HCPCS: 71045; 80048; 83880; 84484; 85025; 93005; 94640; 99284; A4216

== ENCOUNTER 2022-08-12 08:00 | Outpatient (RCR) | payer OTHER, SELFPAY ==
[2022-08-02 09:54] VITALS: BMI 37.8
== END 2022-08-24 23:59 ==
LOC: CR 08:00
PROVIDERS: PCP Family Medicine
DX: I25.2 Old myocardial infarction (principal)
CPT/HCPCS: 93798

== ENCOUNTER → 2022-09-12 | Outpatient (CLI) | payer OTHER, SELFPAY ==
[2022-08-02 09:54] VITALS: BMI 37.8
--- NOTE | 2022-09-13 05:54 | PFTCOMP ---
COMPLETE PULMONARY FUNCTION TEST INTERPRETATION Brief HPI: Patient is a 62-year-old female, currently under the care of Dr. Degroot, who presents to [facility] for complete pulmonary function tests secondary to diagnosis of dyspnea. Respiratory therapist reports good effort and reproducible results. Interpretation: Forced expiration spirometry shows a mild large airways obstructive ventilatory defect with an FEV1 of 70% predicted. There is no significant bronchodilator response by strict ATS criteria. Spirograms are of good quality and plateau slowly, indicating slowly emptying areas of the lungs. The respiratory flow volume loop shows decreased expiratory flow rates at all lung volumes consistent with airway obstruction. Lung volumes by body plethysmography show a total lung capacity at the lower limit of normal at 3.8 L, 81% predicted. All other lung volumes are at the lower limit of normal. Diffusion capacity by carbon monoxide is at the lower limit of normal at 67% predicted. The airway resistance is normal. No previous pulmonary function tests were available for review. Impression: Irreversible mild large airways obstructive ventilatory defect with lung volumes and diffusion capacity at the lower limit of normal
== END | disposition home or self-care (01) ==
LOC: PSN 08:59
PROVIDERS: PCP Family Medicine; Referring Provider Internal Medicine; Visit Provider Internal Medicine
DX: J20.9 Acute bronchitis, unspecified (principal); J42 Unspecified chronic bronchitis
CPT/HCPCS: 94060; 94726; 94729

== ENCOUNTER 2022-09-21 08:00 | Outpatient (RCR) | payer OTHER, SELFPAY ==
[2022-08-02 09:54] VITALS: BMI 37.8
--- NOTE | 2022-08-31 08:05 | PCM.CR.ITP ---
Diagnosis Exercise - 30-day Assessment - Visit Date of Eval: 08/31/22 Session #:: 4 Comments:: Pt was admitted to another facility where she had a heart cath and subsequent stent placement. She will resume her cardiac rehab after her follow up with her juvenile detention officer. Nutrition - Initial Assessment Nutrition - 30-Day Assessment Nutrition - 60-Day Assessment Nutrition - 90-Day Assessment Nutrition - Final Assessment Core - Initial Assessment Core - 30-Day Assessment Core - 60-Day Assessment Core - 90 Day Assessment Core - Final Assessment Psychosocial - Initial Assess Psychosocial - 30-Day Assess Psychosocial - 60-Day Assess Psychosocial - 90-Day Assess Psychosocial - Final Assessmen Nutrition Survey
== END 2022-09-23 23:59 ==
LOC: CR 08:00
PROVIDERS: PCP Family Medicine
DX: I21.4 Non-ST elevation (NSTEMI) myocardial infarction (principal); Z95.5 Presence of coronary angioplasty implant and graft
CPT/HCPCS: 93798

== ENCOUNTER 2022-09-26 06:25 | Outpatient (RCR) | payer OTHER, SELFPAY ==
[2022-08-02 09:54] VITALS: BMI 37.8
--- NOTE | 2022-09-30 09:03 | CR.ITP_ITS ---
Nutrition - Initial Assessment Weight Mgt (Other Care) Height: 5 ft 2 in Weight:: 210 lb 8 oz BMI: 38.5 Psychosocial - Initial Assess Target Goals Target Goals Patient Health Questionnaire PHQ-9 Screening 60-Day Re-eval Assessment: 1. Little interest or pleasure in doing things: Not at all 2. Feeling down, depressed, or hopeless: Not at all 3. Trouble falling or staying asleep, or sleeping too much: Nearly every day 4. Feeling tired or having little energy: More than half the days 5. Poor appetite or overeating: Not at all 6. Feeling bad about yourself -- or that you are a failure or have let yourself or your family down: Not at all 7. Trouble concentrating on things, such as reading the newspaper or watching television: Not at all 8. Moving or speaking so slowly that other people could have noticed. Or the opposite - being so fidgety or restless that you have been moving around a lot more than usual: Not at all 9. Thoughts that you would be better off , or of hurting yourself in some way: Not at all How difficult have these problems made it for you to do your work, take care of things at home, or get along with other people?: Not difficult at all Total Score: 5 Self-Efficacy 6-Item Scale 60-Day Re-eval Assessment: We would like to know how confident you are in doing certain activities. Please select your confidence level for: Fatigue Select Number: 9 Physical Discomfort or Pain Select Number: 9 Emotional Distress Select Number: 10 Other Symptoms or Health Problems Select Number: 10 Different Tasks and Activities Select Number: 1 Medication Select Number: 1 Total Score:: 6 Nutrition Survey Nutrition Survey Instructions Scoring Instructions Exercise - 60-day Assessment Visit Date of Eval: 09/30/22 Session #:: 15 Physician Prescribed Exercise Modalities: Treadmill, Airdyne and NuStep Frequency: 3x/week for 12 weeks [36 sessions] Intensity: 60-80% of age predicted maximum heart rate reserve Current METSs:: 5 Target Heart Rate:: 119-135 Current RPE:: 12-14.5 Maximum Excercise HR:: 117 Resting Blood Pressure: 162/86 Maximum Exercise Blood Pressure: 162/86 EKG Type: SR to ST Outcomes & Goals Goals:: Verbalizes understanding of THR, RPE & goal METS by session 6, Documents in home exercise log/reports 30 min aerobic 5 day/wk by DC, Demonstrates accurate pulse taking by DC and Other additional outcome/goals: see below Intervention & Plan Exercise Program Goals: Instruct on personal THR & RPE, Instruct on MET level & personal MET goal, Show patient to take own pulse /validate performance until accurate, Instruct on home exercise and Other additional plan/int 30-day Reassessments 30 day Reassessments:: Progressing Reassessment Notes & Comments:: THR explained Physical Activity Home Exercise Physical Activity - Home Exercise: Safe Exercise, Warm-up, Self-monitoring, Cool-Down, Home Exercise > 30 min Daily and Sitting Time <3 hours/daily Outcomes & Goals Outcomes/Goals: Demonstrates correct Warm-up/exercise Cool-Down (S3) if = 2.5 METs, Verbalizes symptoms of exercise intolerance by Session 3 (S3), Demonstrate safe equipment use (S3) & follows exercise prescrition (6) and Other: See below Intervention & Plan Plan/Intervention: Instruct warm-up & cool-down if exercising at > 2 METs, Instruct on symptoms of exercise intolerance & actions to take, Instruct & monitor on saf, Assess intial functional capacity & safety risk and Other See below 30-day Reassessments 30 day Reassessments:: Progressing Reassessment Notes & Comments:: cool down encouraged Nutrition - 30-Day Assessment Weight Mgt (Other Care) Height: 5 ft 2 in Weight:: 210 lb 8 oz BMI: 38.5 Nutrition - 60-Day Assessment Program Goals Nutrition Program Goals Patient has diagnosis of Hyperlipidemia (ICD E78)?: Yes Visit Date of Eval: 09/30/22 Session #:: 15 Cholesterol/Lipids (Other Core Measures) Determine presence & major risk factors that modify LDL goal: Cigarette smoking, Hypertension or hypertensive medication, Low HDL cholesterol <40 mg/dL*, Family history of premature CHD in Male < 55 years: female <65 yearsFa and Age men > 45 years; women >/= 55 years Outcomes/Goals: Pt IDs own risk factors & lifestyle modifications by Session 10, Verbalizes symptoms of angina & response by session 3., Pt independently manages and Other Additional Outcomes/Goals: Intervention/Plan: Advocate for lipid panel cholesterol medication if applicable, Instruct on personal lipid levels & lipid goals/NCEP guidelines, Instruct on cholesterol and Other additional plan/int 30-day Reassessments:: Progressing Reassessment Notes & Comments:: encouraged to do bloodwork Diabetes (Other Core Measures) Diabetes Type: Not Applicable Weight Mgt (Other Care) Height: 5 ft 2 in Weight:: 210 lb 8 oz BMI: 38.5 Diagnosis Overweight/Obesity BMI> 30% ICD-10 E66: Yes Diagnosis High BMI/Morbid Obesity BMI> 35% ICD-10 Z68: Yes Outcomes/Goals: Pt sets, maintains & shows weight loss goal & trend during rehab and Other additional outcomes/goals Intervention/Plan: Instruct on ideal BMI & set weight loss goal w/patient, Assist pt to ID & incorporate diet changes for weight loss by S9, Refer to Structured Weight Loss program as appropriate, Encourage goal of using 250- 300dcal per session for weight loss and Other additional plan/interventions 30 day Reassessments:: Progressing Reassessment Notes & Comments:: pt will attend nutrition class Healthy Eating Habits Will attend diet classes:: Yes Outcomes/Goals:: Consume diet rich in vegs,fruits,whole grain/high fiber,fish,lean meat, Limit sat/trans fats,cholesterol & added salts & sugars and Other additional outcome/goals: 30-day Reassessments:: Progressing Reassessment Notes & Comments:: pt will attend nutrition class Education Gave educational materials for:: Signs & symptoms of hypoglycemia, Signs & symptoms of hyperglycemia, Relate diabetes to coronary artery disease and Healthy eating Core - 60-Day Assessment Visit Date of Eval: 09/30/22 Session #:: 15 Medication Compliance Preventative Medication(s):: Aspirin, Clopidogrel/P2Y12 inhibit, Statin/lipid and Beta alysha H/O mental health issues: depression, anxiety, or addiction?: No Doesn?t believe in the benefits of treatment?: No Believes medications are unnecessary or harmful?: No Has a concern about medication side effects?: No Expresses concern over the cost of medications?: No Outcomes/Goals: Verbalizes medications,desired effect & common side effects @ DC, Pt self-reports following medication regimen, Keeps card in wallet w/medications listed by DC and Other additional outcome/goals: Interventions/plans: Instruct on medication effects & side effects, Review medication list w/patient every two weeks, Instruct importance of taking meds as ordered & assist problem solving and Other additional 30-day Reassessments:: Progressing Reassessment Notes & Comments:: encouraged to take her meds Tobacco Use Tobacco Use: Cigarettes (recently qiut 06/23/22 per pt.) How long ago did you quit using tobacco products?: Less than 6 months ago 30-day Reassessments:: Met Hypertension Hypertension Diagnosis:: Hypertension ICD-10 I10 Resting Blood Pressure:: 162/86 [place] [employer] Hypertension Guidelines Peak Exercise Blood Pressure:: 162/86 Outcomes/Goals: Able to verbalize/achieve optimal blood pressure <130/80, Incorporates diet changes & exercise for blood pressure control by DC and Other additional outcomes/goals Interventions/plan: Instruct on optimal blood pressure, hypertension & medications, Instruct on effects of sodium, alcohol, stress, exercise &hypertension and Other additional plan/interventions 30 day Reassessments:: Progressing Reassessment Notes & Comments:: meds are being adjusted by her testing projects administrator Tobacco Cessation Referral Smoking Cessation Referral:: No Individual Education/Counseling:: No Education Schedule Given:: Yes Psychosocial - 30-Day Assess Target Goals Target Goals Psychosocial - 60-Day Assess VIsit Date of Eval: 09/30/22 Session #:: 15 History of previous Mental disease:: No Target Goals Target Goals Psychosocial - 90-Day Assess Target Goals Target Goals Psychosocial - Final Assessmen Target Goals Target Goals Nutrition - 90-Day Assessment Weight Mgt (Other Care) Height: 5 ft 2 in Weight:: 210 lb 8 oz BMI: 38.5 Nutrition - Final Assessment Weight Mgt (Other Care) Height: 5 ft 2 in Weight:: 210 lb 8 oz BMI: 38.5
[2022-09-30 09:15] VITALS: BP 162/86; BMI 38.5
== END 2022-10-24 23:59 ==
LOC: CR 06:25
PROVIDERS: PCP Family Medicine
DX: I21.4 Non-ST elevation (NSTEMI) myocardial infarction (principal); Z95.5 Presence of coronary angioplasty implant and graft
CPT/HCPCS: 93798

== ENCOUNTER 2022-10-01 22:03 | Inpatient (IN) | payer OTHER, SELFPAY ==
[2022-09-30 09:15] VITALS: BMI 38.5
[2022-10-01 22:04] VITALS: BP 149/94; PULSE 88; RESP 15; TEMP 36.2; O2SAT 97; BMI 37.2
--- NOTE | 2022-10-01 22:33 | EKG12_ITS ---
Test Reason : SOB Blood Pressure : / mmHG Vent. Rate : 072 BPM Atrial Rate : 072 BPM P-R Int : 148 ms QRS Dur : 078 ms QT Int : 374 ms P-R-T Axes : 030 029 062 degrees QTc Int : 409 ms Normal sinus rhythm Normal ECG Confirmed by NIKC SALGUERO, ANA ([id number]), scientific publications editor SD HELM ([id number]) on 10/03/2022 11:30:49 A M Referred By: Ranjan Scott Confirmed By:EDWARD ROMERO MD
[2022-10-01] MEDS: Ipratropium/Albuterol Sulfate 3 ML AMPUL.NEB 6 ML INHALATION (22:43)
[2022-10-01 22:48] VITALS: PULSE 73; RESP 16
--- NOTE | 2022-10-01 23:00 | RAD_ITS ---
INDICATION: sob EXAMINATION/TECHNIQUE: X-RAY - XR Chest 1 View COMPARISON: March 28, 2022 FINDINGS: LINES/DEVICES: None. LUNGS: No consolidation, edema or effusion. No pneumothorax. MEDIASTINUM AND CARDIOVASCULAR STRUCTURES: Cardiac silhouette not enlarged. Central airways and mediastinal contour are unremarkable. BONES AND SOFT TISSUES: Unremarkable. RAD/Chest 1 View (Portable) IMPRESSION: No radiographic evidence of acute cardiopulmonary disease. Electronically Signed: Kobe Pascual DO at 23:19 EDT ,
--- NOTE | 2022-10-01 23:16 | EX.ED.DYSGE1 ---
HPI History of Present Illness Chief Complaint: Shortness of Breath Narrative Narrative: Patient presents with shortness of breath. She has a history of COPD, she is using her rescue inhaler her DuoNebs, she is on prednisone and she is on antibiotics for the past few days and she is worsening she now has green sputum and feels quite short of breath ambulating. [facility] Medical History Aortic stenosis Bilateral carotid artery stenosis without cerebral infarction Chronic bronchitis with acute exacerbation Coronary artery disease Hypertension Infrarenal abdominal aortic aneurysm (AAA) without rupture Mixed hyperlipidemia Non-STEMI (non-ST elevated myocardial infarction) (~06/23/22) Paroxysmal A-fib Peripheral vascular disease Statin intolerance Subclavian artery stenosis, left Tobacco dependence due to cigarettes Home Medications acetaminophen 325 mg tablet (Tylenol) 325 - 650 mg PO Q6H PRN Pain 08/02/22 [History Last Taken Unknown] aspirin 81 mg tablet 81 mg PO DAILY 08/02/22 [History Last Taken Unknown] carvedilol 12.5 mg tablet 12.5 mg PO BID 08/02/22 [History Last Taken Unknown] furosemide 20 mg tablet (Lasix) 20 mg PO DAILY PRN Edema 08/02/22 [History Last Taken Unknown] albuterol sulfate 90 mcg/actuation aerosol inhaler 2 puff inhalation Q4H PRN shortness of breath or wheezing 09/05/22 [History Last Taken Unknown] benzonatate 100 mg capsule 200 mg PO TID PRN 09/05/22 [History Last Taken Unknown] clopidogrel 75 mg tablet 75 mg PO DAILY 09/05/22 [History Last Taken Unknown] ipratropium bromide 21 mcg (0.03 %) nasal spray 2 spray intranasal BID PRN sinusits #30 mL 09/05/22 [Rx Last Taken Unknown] amoxicillin 875 mg-potassium clavulanate 125 mg tablet 1 tab PO BID #10 tabs 09/30/22 [Rx Last Taken Unknown] budesonide 160 mcg-glycopyr 9 mcg-formot 4.8 mcg/actuation HFA inhaler (Breztri Aerosphere) 2 inh inhalation BID #10.7 grams 09/30/22 [Rx Last Taken Unknown] hydralazine 10 mg tablet 10 mg PO TID 09/30/22 [History Last Taken Unknown] ipratropium 0.5 mg-albuterol 3 mg (2.5 mg base)/3 mL nebulization soln 3 ml inhalation Q4H PRN PRN SOB &/OR WHEEZING #180 mL 09/30/22 [Rx Last Taken Unknown] prednisone 10 mg tablet 10 mg PO QDAY #30 tabs 09/30/22 [Rx Last Taken Unknown] Allergy/AdvReac Type Severity Reaction Status Date / Time morphine Allergy Rash Verified 10/01/22 22:07 niacin Allergy Pain in Verified 10/01/22 22:07 joints Surgical History History of heart artery stent (~08/2022) Postsurgical percutaneous transluminal coronary angioplasty (PTCA) status Stented coronary artery Social History Smoking Status: Former smoker quit date: 06/08/22 alcohol intake: current alcohol intake frequency: holidays/special occasions only substance use type: does not use ROS ROS ED ROS Narrative Past medical history: Reviewed Medications: Reviewed Social history: Noncontributory Review of systems: All systems negative except as indicated General: No fever Eyes: No visual changes ENT: No upper airway congestion, normal voice Neck: No neck pain Cardiovascular: No chest pain Respiratory: Dyspnea as in HPI Gastrointestinal: No abdominal pain, nausea vomiting or diarrhea Genitourinary: No dysuria Musculoskeletal: Denies myalgias no difficulty with ambulation Skin: No rash Neurological: No memory loss, confusion or any focal weakness EXAM Physical Exam Narrative Exam Narrative: Physical exam General: Well nourished, Well developed, No Acute Distress Head: Normocephalic, Atraumatic Eyes: Conjunctiva not pale ENT: Moist mucous membranes Neck: Supple, Nontender, No lymphadenopathy Cardiovascular: Regular rate, Regular rhythm Respiratory: Bilateral end expiratory wheezing. Abdomen: Soft, Nontender, Nondistended Back: Nontender, Normal Inspection. Negative for: CVA tenderness Extremities: Nontender, No edema Skin: Normal color, No rash Neurological: Alert, Normal Strength, Normal Sensation Psychological: Normal affect Const Vital Signs: 10/01/22 22:04 10/01/22 22:48 10/02/22 00:30 Temperature 97.1 F L Temperature Source Temporal Pulse Rate 88 73 80 Respiratory Rate 15 16 22 H Blood Pressure 149/94 H Blood Pressure Mean 112 Pulse Ox 97 97 Oxygen Delivery Method Room Air Room Air MDM MDM MDM Narrative Medical decision making narrative: X-ray read by me as normal. Patient has an exacerbation of COPD. She is failing outpatient treatment she was given IV Solu-Medrol and antibiotics but continues to be wheezy and have respiratory distress she tells me she can barely walk to one side of the room without getting dyspneic. Since she is failing outpatient treatment I will admit her. I talked with daughter who also gives a history and agrees to the plan. I talked to hospitalist for admission. Lab Data Labs: Laboratory Results - last 24 hr 10/01/22 23:15 WBC 15.9 H RBC 4.54 Hgb 13.5 Hct 40.9 MCV 90.1 MCH 29.7 MCHC 33.0 RDW Std Deviation 46.1 H RDW Coeff of Faith 14.0 Plt Count MPV 10.2 Immature Gran % (Auto) 0.400 Neut % (Auto) 81.2 H Lymph % (Auto) 15.0 L [place] % (Auto) 3.0 Eos % (Auto) 0.1 Baso % (Auto) 0.3 Absolute Neuts (auto) 12.9 H Absolute Lymphs (auto) 2.39 Nucleated RBC % 0 Differential Comment SCANNED Platelet Estimate ADEQUATE Sodium 134 L Potassium 4.4 Chloride 105 Carbon Dioxide 23.0 Anion Gap 6 BUN 20 H Creatinine 0.96 Estim Creat Clear Calc 50.91 Est GFR (MDRD) Af Amer 76 Est GFR (MDRD) Non-Af 63 BUN/Creatinine Ratio 20.9 H Glucose 121 H Calcium 9.1 Total Bilirubin 0.50 AST 28 ALT 33 Alkaline Phosphatase 67 Troponin I High Sens 8 B-Natriuretic Peptide 78.6 Total Protein 7.9 Albumin 3.6 Globulin 4.3 H Albumin/Globulin Ratio 0.8 L Radiography Diagnostic Testing: Clinical Impression(s) from Imaging Studies Chest X-Ray 10/01/22 23:00 IMPRESSION: No radiographic evidence of acute cardiopulmonary disease. Electronically Signed: Kobe Pascual DO at 23:19 EDT , EKG Initial EKG: Comments: Sinus rhythm with a rate of 72. Normal MD and QTc intervals. No ischemic changes. Interpreted by emergency doctor. Discharge Plan Triage Chief Complaint: Shortness of Breath ED Provider: Shaun Zuluaga Dx/Rx/DC Orders Clinical Impression: Acute dyspnea, Failure of outpatient treatment, Chronic bronchitis with acute exacerbation Prescriptions: No Action benzonatate 100 mg capsule 200 mg PO TID PRN Patient Comments: Take 2 capsules by mouth three times daily as needed for up to 7 days. albuterol sulfate 90 mcg/actuation HFA aerosol inhaler 2 puff inhalation Q4H PRN (Reason: shortness of breath or wheezing) Patient Comments: Inhale 2 Puffs as instructed every 4 hours as needed for wheezing/shortness of breath. With spacer clopidogrel 75 mg tablet 75 mg PO DAILY Patient Comments: TAKE 1 TABLET BY MOUTH EVERY DAY ipratropium bromide 21 mcg (0.03 %) spray,non-aerosol 2 spray intranasal BID MDD 4 puffs PRN (Reason: sinusits) Qty: 30 5RF Rx Instructions: administer into each nostril hydralazine 10 mg tablet 10 mg PO TID Rx Instructions: 20mg in the morning and 10 in the afternoon. and 10 in the evening. amoxicillin-pot clavulanate 875-125 mg tablet 1 tab PO BID Qty: 10 0RF prednisone 10 mg tablet 10 mg PO QDAY Qty: 30 0RF Rx Instructions: take 4 tabs for three days, then 3 tabs for three days, then 2 tabs for three days, then 1 tab for 3 days ipratropium-albuterol 0.5 mg-3 mg(2.5 mg base)/3 mL solution for nebulization 3 ml inhalation Q4H PRN PRN (Reason: SOB &/OR WHEEZING) Qty: 180 6RF Breztri Aerosphere 160-9-4.8 mcg/actuation HFA aerosol inhaler 2 inh inhalation BID Qty: 10.7 6RF furosemide [Lasix] 20 mg Tablet 20 mg PO DAILY PRN (Reason: Edema) acetaminophen [Tylenol] 325 mg Tablet 325 - 650 mg PO Q6H PRN (Reason: Pain) carvedilol 12.5 mg Tablet 12.5 mg PO BID Rx Instructions: must administer with a meal/food aspirin 81 mg Tablet 81 mg PO DAILY Primary Care Provider: Amado Coulter Referrals: Amado Coulter MD [Primary Care Provider] - Disposition Disposition: Acute Care Hospital [facility]
[2022-10-01 23:22] LABS: Absolute Lymphocyte Count 2.39 X10^3/uL (0.83-4.51); Absolute Neutrophil Count 12.9 X10^3/uL (2.0-7.7); Basophil# 0.05 X10^3/uL; Basophil% 0.3 % (0-1); Eosinophil# 0.01 X10^3/uL; Eosinophils% 0.1 % (0-5); Hematocrit 40.9 % (37-47); Hemoglobin 13.5 g/dL (12.0-15.0); Lymphocyte # 2.39 X10^3/ul (0.83-4.51); Mean Corpuscular Hgb 29.7 pg (27.0-32.0); Mean Corpuscular Volume 90.1 fL (81-99); Mean Platelet Vol. 10.2 fl (6.2-12.0); Monocyte# 0.48 X10^3/uL; NRBC Flagged by Analyzer 0 % (0-5); Neutrophil % 81.2 % (47-70); POSITIVE COUNT YES; RBC Distribution Width SD 46.1 fl (35.1-43.9); Red Blood Count 4.54 M/mm3 (4.2-5.4); White Blood Count 15.9 K/mm3 (4.4-11.0)
[2022-10-01 23:24] LABS: Differential Indicated SCAN CRITERIA MET
[2022-10-01 23:50] LABS: Differential Comment SCANNED; Platelet Estimate ADEQUATE (ADEQ)
[2022-10-02] VITALS (16 sets, daily range): BP systolic 144–188; BP diastolic 71–91; PULSE 71–100; RESP 15–22; TEMP 36.2–36.7; O2SAT 92–99; BMI 37.5
[2022-10-02 00:11] LABS: BNP,B-Type NATRIURETIC PEPTIDE 78.6 pg/mL (0-100)
[2022-10-02 00:13] LABS: ALB/GLOB Ratio 0.8 RATIO (0.9-2.4); AST(SGOT) 28 U/L (15-37); Alanine Aminotransfer ALT/SGPT 33 U/L (13-56); Albumin, Serum 3.6 g/dL (3.2-5.0); Alkaline Phosphatase 67 U/L (45-117); Anion Gap 6 (5-15); BUN 20 mg/dL (7-18); BUN/Creat Ratio 20.9 RATIO (10-20); Calcium,Total 9.1 mg/dL (8.5-10.1); Chloride 105 mmol/L (98-107); Creatinine, Serum 0.96 mg/dL (0.55-1.02); EST Glomerular Filtration Rate 63 mL/min (>60); Est Glom Filt Rate - Afr Amer 76 mL/min (>60); Estimated Creatinine Clearance 50.91 ml/min; Globulin 4.3 g/dL (2.2-4.2); Glucose 121 mg/dL (74-106); Potassium 4.4 mmol/L (3.5-5.1); Protein, Total 7.9 g/dL (6.4-8.2); Sodium Level 134 mmol/L (136-145); Troponin-I HS 8 pg/mL (3.0-54.0)
--- NOTE | 2022-10-02 00:52 | PCM.HP.STD ---
HPI - General General Date of Admission: 10/02/22 Date of Service: 10/02/22 HPI Narrative ANGELITA CRESPO, is a 62 F who presents to the emergency department with difficulty ambulating. She has a history of COPD. She was at a cardiac rehab recently and her activities was cut down. She continues to have significant shortness of breath even with short steps like walking from her bathroom to her bedroom and vice versa all. She has been on prednisone and antibiotics without any real relief. She has been having greenish sputum. She has been wheezing. [facility] Medical History Aortic stenosis Bilateral carotid artery stenosis without cerebral infarction Chronic bronchitis with acute exacerbation Coronary artery disease CVA (cerebral vascular accident) Hypertension Infrarenal abdominal aortic aneurysm (AAA) without rupture Mixed hyperlipidemia Non-STEMI (non-ST elevated myocardial infarction) (~06/23/22) Paroxysmal A-fib Peripheral vascular disease Statin intolerance Subclavian artery stenosis, left Tobacco dependence due to cigarettes Home Medications acetaminophen 325 mg tablet (Tylenol) 325 - 650 mg PO Q6H PRN Pain 08/02/22 [History Last Taken Unknown] aspirin 81 mg tablet 81 mg PO DAILY blood thinner 08/02/22 [History Last Taken 10/01/22] carvedilol 12.5 mg tablet 12.5 mg PO BID heart 08/02/22 [History Last Taken 10/01/22] furosemide 20 mg tablet (Lasix) 20 mg PO DAILY Edema 08/02/22 [History Last Taken 10/01/22] albuterol sulfate 90 mcg/actuation aerosol inhaler 2 puff inhalation Q4H PRN shortness of breath or wheezing 09/05/22 [History Last Taken Unknown] benzonatate 100 mg capsule 200 mg PO TID PRN cough 09/05/22 [History Last Taken Unknown] clopidogrel 75 mg tablet 75 mg PO DAILY blood thinner 09/05/22 [History Last Taken 10/01/22] ipratropium bromide 21 mcg (0.03 %) nasal spray 2 spray intranasal BID PRN sinusits #30 mL 09/05/22 [Rx Last Taken 10/01/22] amoxicillin 875 mg-potassium clavulanate 125 mg tablet 1 tab PO BID atb #10 tabs 09/30/22 [Rx Last Taken 10/01/22] budesonide 160 mcg-glycopyr 9 mcg-formot 4.8 mcg/actuation HFA inhaler (Breztri Aerosphere) 2 inh inhalation BID resp #10.7 grams 09/30/22 [Rx Last Taken 10/01/22] hydralazine 10 mg tablet 10 mg PO TID bp 09/30/22 [History Last Taken 10/01/22] ipratropium 0.5 mg-albuterol 3 mg (2.5 mg base)/3 mL nebulization soln 3 ml inhalation Q4H PRN PRN SOB &/OR WHEEZING #180 mL 09/30/22 [Rx Last Taken 10/01/22] prednisone 10 mg tablet 10 mg PO QDAY steriod #30 tabs 09/30/22 [Rx Last Taken 10/01/22] Allergy/AdvReac Type Severity Reaction Status Date / Time morphine Allergy Rash Verified 10/01/22 22:07 niacin Allergy Pain in Verified 10/01/22 22:07 joints Surgical History History of heart artery stent (~08/2022) Postsurgical percutaneous transluminal coronary angioplasty (PTCA) status Stented coronary artery Social History Smoking Status: Former smoker quit date: 06/08/22 alcohol intake: current alcohol intake frequency: holidays/special occasions only substance use type: does not use ROS ROS Narrative Pertinent positives and pertinent negatives as noted in HPI. All other systems were reviewed and are negative Vital Signs Vital Signs Vital Signs: 10/01/22 22:04 10/01/22 22:48 10/02/22 00:30 Temperature 97.1 F L Temperature Source Temporal Pulse Rate 88 73 80 Respiratory Rate 15 16 22 H Blood Pressure 149/94 H Blood Pressure Mean 112 Pulse Ox 97 97 Oxygen Delivery Method Room Air Room Air Weight Weight: 95.254 kg Body Mass Index (BMI) 37.2 Physical Exam Narrative Physical exam: General: Well-nourished, well-developed. Head: Normocephalic, atraumatic, no tenderness Eyes: Vision is grossly intact. EOMI ENT, no trauma, moist mucous membranes, no rhinorrhea Neck: Nontender, No thyromegaly. CVS: Regular rate and rhythm. S1-S2 present. No murmur, gallop or rub. Respiratory : Tachypnea; wheezing bilaterally, chest wall nontender Abdomen: Soft, nontender, nondistended, normal bowel sounds, no masses : Deferred Back: Nontender, no CVA tenderness, no midline spinal tenderness, deformities, step-offs Extremities: Nontender full range of motion, no trauma Skin: Normal color, no trauma, abrasions Neuro: Alert, oriented, cranial nerves II through XII grossly intact. Psychiatry: Normal mood. Normal affect. Not depressed. Not anxious. Results Lab / Micro Data 10/02/22 05:42 10/02/22 05:42 Labs: Laboratory Results - last 24 hr 10/01/22 23:15: WBC 15.9 H, RBC 4.54, Hgb 13.5, Hct 40.9, MCV 90.1, MCH 29.7, MCHC 33.0, RDW Std Deviation 46.1 H, RDW Coeff of Faith 14.0, Plt Count , MPV 10.2, Immature Gran % (Auto) 0.400, Neut % (Auto) 81.2 H, Lymph % (Auto) 15.0 L, [place] % (Auto) 3.0, Eos % (Auto) 0.1, Baso % (Auto) 0.3, Absolute Neuts (auto) 12.9 H, Absolute Lymphs (auto) 2.39, Nucleated RBC % 0, Differential Comment SCANNED, Platelet Estimate ADEQUATE, Sodium 134 L, Potassium 4.4, Chloride 105, Carbon Dioxide 23.0, Anion Gap 6, BUN 20 H, Creatinine 0.96, Estim Creat Clear Calc 50.91, Est GFR (MDRD) Af Amer 76, Est GFR (MDRD) Non-Af 63, BUN/Creatinine Ratio 20.9 H, Glucose 121 H, Calcium 9.1, Total Bilirubin 0.50, AST 28, ALT 33, Alkaline Phosphatase 67, Troponin I High Sens 8, B-Natriuretic Peptide 78.6, Total Protein 7.9, Albumin 3.6, Globulin 4.3 H, Albumin/Globulin Ratio 0.8 L Radiology Impression Chest X-Ray 10/01/22 23:00 IMPRESSION: No radiographic evidence of acute cardiopulmonary disease. Electronically Signed: Kobe Pascual DO at 23:19 EDT Reading Location ID and State: [facility] / [place] Tel [phone], Service support , Assessment & Plan Assessment/Plan (1) Acute dyspnea: (2) Chronic bronchitis with acute exacerbation: PLAN: Plan Acute COPD exacerbation Impression of chest x-ray by radiology:No radiographic evidence of acute cardiopulmonary disease CXR independently interpreted and I agree with Scheduled DuoNeb Albuterol as needed Solu-Medrol Azithromycin and ceftriaxone ordered Oxygen as needed CBC with white count of 15,900. Monitor BMP and CBC DVT prophylaxis Subcutaneous Lovenox ordered. Time spent in the patient's overall evaluation,decision-making process, review of diagnostic data, adjustment of management, discussion with other providers, nursing nursing and ancillary staff involved in patient's care documentation, 42minutes. Charges/Coding Visit Charges Inpatient E&M: 11749 Init Hosp L2
[2022-10-02] MEDS: MethylPREDNISolone 125 MG/2 ML Vial IV (00:53)
[2022-10-02] MEDS: Ceftriaxone 1 GM/50 ML BAG IV (00:53)
[2022-10-02] MEDS: Ondansetron 4 MG/2 ML Vial IV (02:25)
[2022-10-02] MEDS: Ipratropium/Albuterol Sulfate 3 ML AMPUL.NEB INHALATION ×5 (03:30→20:13)
[2022-10-02] MEDS: Methylprednisolone Sod Succ 40 MG/ML VIAL IV ×3 (05:11→21:16)
[2022-10-02 06:55] LABS: Absolute Lymphocyte Count 1.39 X10^3/uL (0.83-4.51); Basophil# 0.02 X10^3/uL; Basophil% 0.2 % (0-1); Hematocrit 39.4 % (37-47); Hemoglobin 12.8 g/dL (12.0-15.0); Lymphocyte # 1.39 X10^3/ul (0.83-4.51); Mean Corp Hgb Conc 32.5 g/dL (32-36); Mean Corpuscular Hgb 29.5 pg (27.0-32.0); Mean Corpuscular Volume 90.8 fL (81-99); Mean Platelet Vol. 10.3 fl (6.2-12.0); Monocyte# 0.11 X10^3/uL; Monocyte% 0.9 % (0-10); NRBC Flagged by Analyzer 0 % (0-5); Neutrophil # 10.99 X10^3/uL (2.7-7.7); Neutrophil % 87.3 % (47-70); Platelet Count 346 K/mm3 (150-450); RBC Distribution Width CV 14.1 % (11.6-14.6); RBC Distribution Width SD 47.5 fl (35.1-43.9); Red Blood Count 4.34 M/mm3 (4.2-5.4); White Blood Count 12.6 K/mm3 (4.4-11.0)
--- NOTE | 2022-10-02 07:36 | PCM.PN.HOSP ---
Reason for Visit Reason for Visit: Follow-up for COPD/chronic bronchitis exacerbation Subjective Subjective Patient states her shortness of breath is better. She quit smoking. Follows Dr. Benoit. Sometimes brings up greenish sputum which is thick and gets stuck in the chest or throat. Objective Data Objective Data Vital Signs: Vital Signs Temp Pulse Resp BP Pulse Ox O2 Del Method 97.8 F 72 18 144/71 H 97 Room Air 10/02/22 03:52 10/02/22 03:52 10/02/22 03:52 10/02/22 03:52 10/02/22 03:52 10/02/22 03:52 Oxygen Delivery Method Room Air Weight: 212 lb 1.355 oz Body Mass Index (BMI) 37.5 Intake & Output: Intake and Output for Last 24 Hours 09/30/22 10/01/22 10/02/22 23:59 23:59 23:59 Intake Total 365 / 365 Balance 365 / 365 Lab / Micro Data 10/02/22 05:42 10/02/22 05:42 Labs: Laboratory Results - last 24 hr 10/01/22 23:15: WBC 15.9 H, RBC 4.54, Hgb 13.5, Hct 40.9, MCV 90.1, MCH 29.7, MCHC 33.0, RDW Std Deviation 46.1 H, RDW Coeff of Faith 14.0, Plt Count , MPV 10.2, Immature Gran % (Auto) 0.400, Neut % (Auto) 81.2 H, Lymph % (Auto) 15.0 L, [place] % (Auto) 3.0, Eos % (Auto) 0.1, Baso % (Auto) 0.3, Absolute Neuts (auto) 12.9 H, Absolute Lymphs (auto) 2.39, Nucleated RBC % 0, Differential Comment SCANNED, Platelet Estimate ADEQUATE, Sodium 134 L, Potassium 4.4, Chloride 105, Carbon Dioxide 23.0, Anion Gap 6, BUN 20 H, Creatinine 0.96, Estim Creat Clear Calc 50.91, Est GFR (MDRD) Af Amer 76, Est GFR (MDRD) Non-Af 63, BUN/Creatinine Ratio 20.9 H, Glucose 121 H, Calcium 9.1, Total Bilirubin 0.50, AST 28, ALT 33, Alkaline Phosphatase 67, Troponin I High Sens 8, B-Natriuretic Peptide 78.6, Total Protein 7.9, Albumin 3.6, Globulin 4.3 H, Albumin/Globulin Ratio 0.8 L 10/02/22 05:42: WBC 12.6 H, RBC 4.34, Hgb 12.8, Hct 39.4, MCV 90.8, MCH 29.5, MCHC 32.5, RDW Std Deviation 47.5 H, RDW Coeff of Faith 14.1, Plt Count 346, MPV 10.3, Immature Gran % (Auto) 0.600, Neut % (Auto) 87.3 H, Lymph % (Auto) 11.0 L, [place] % (Auto) 0.9, Eos % (Auto) 0.0, Baso % (Auto) 0.2, Absolute Neuts (auto) 11.0 H, Absolute Lymphs (auto) 1.39, Nucleated RBC % 0 Radiography Diagnostic Testing: Radiology Impression Chest X-Ray 10/01/22 23:00 IMPRESSION: No radiographic evidence of acute cardiopulmonary disease. Electronically Signed: Kobe aPscual DO at 23:19 EDT Reading Location ID and State: [facility] / [place] Tel [phone], Service support , Physical Exam Narrative General: Alert, Oriented x3, Cooperative HEENT: Atraumatic, PERRLA, EOMI, Normocephalic Oral: Oral Moist. No Gingival or Mucosal Lesions/ Ulcerations Neck: Supple, No JVD, Negative Carotid Bruits Lungs: Air entry diminished in bilateral lung bases. Mild bilateral expiratory rhonchi. Cardiovascular: Regular rate, Regular Rhythm, Normal S1, Normal S2, No murmurs Abdomen: Bowel Sounds Present, Soft, Non Tender, Non-Distended : No renal angle tenderness. No suprapubic tenderness. Extremities: No edema, Capillary Refill Less than 3 Seconds Skin: No rashes, No breakdown Musculoskeletal: No Tenderness to Palpation of Joints or Extremities. Bilateral knee and hip joint arthritis. Neurological: Cranial nerves II-XII grossly intact, DTR 2+/4 and Symmetrical, Neuro grossly intact Psych/Mental Status: Flat affect. Assessment & Plan Assessment/Plan (1) Chronic bronchitis with acute exacerbation: PLAN: Plan 62-year-old female admitted with shortness of breath which is worsening despite being on prednisone, DuoNeb, inhaler and antibiotics for past few days. She also has greenish sputum and dyspnea on mild exertion. 1. COPD exacerbation: Patient has chronic bronchitis. [facility] Chest x-ray individually reviewed and does not show evidence of acute cardiopulmonary abnormality. Twelve-lead EKG individually reviewed is normal sinus rhythm 72 bpm. Patient is on DuoNeb nebulization, IV Solu-Medrol, azithromycin, incentive spirometry Pep and Mucinex. Discontinue IV ceftriaxone. Patient has cigarette smoking history, quit in May 2022. 2. CAD, history of non-STEMI status post stent, paroxysmal A-fib, aortic stenosis, peripheral arterial disease with infrarenal AAA, left subclavian artery stenosis and bilateral carotid artery stenosis without cerebral infarction: Patient on baby aspirin, carvedilol, clopidogrel, furosemide and hydralazine. Home medications continued. Patient not on oral anticoagulation. 3. Hypertension, dyslipidemia, with statin intolerance: BP is controlled. Patient could not have statin. Discussed other options including Zetia, fenofibrate and vascepa VTE prophylaxis high risk: Patient does not want enoxaparin as she thinks put on the extra risk for bleeding. She has IV line in the leg but she states she is walking. Left leg SCD. Charges/Coding Visit Charges Inpatient E&M: 92309 Subs Hosp L2
[2022-10-02 07:56] LABS: Anion Gap 6 (5-15); BUN 16 mg/dL (7-18); BUN/Creat Ratio 18.6 RATIO (10-20); Calcium,Total 8.9 mg/dL (8.5-10.1); Chloride 106 mmol/L (98-107); Creatinine, Serum 0.86 mg/dL (0.55-1.02); EST Glomerular Filtration Rate 71 mL/min (>60); Est Glom Filt Rate - Afr Amer 86 mL/min (>60); Estimated Creatinine Clearance 56.83 ml/min; Glucose 135 mg/dL (74-106); Sodium Level 137 mmol/L (136-145)
[2022-10-02 09:11] LABS: Cholesterol 247 mg/dL (200); High Density Lipoprotein 62 mg/dL; Triglycerides 64 mg/dL; Very Low Density Lipoprotein 13 mg/dL (5-40)
--- NOTE | 2022-10-02 09:47 | NURSING ---
dr land notified by text that home meds were not ordered for this pt
[2022-10-02] MEDS: hydrALAZINE 10 MG Tablet PO ×2 (11:44→21:14)
[2022-10-02] MEDS: Carvedilol 12.5 MG Tablet PO ×2 (11:44→21:15)
[2022-10-02] MEDS: DiphenhydrAMINE 12.5 MG/5 ML UDC PO (11:45)
[2022-10-02] MEDS: Aspirin E.C. 81 MG Tablet PO (11:45)
[2022-10-02] MEDS: Furosemide 20 MG Tablet PO (11:45)
[2022-10-02] MEDS: Clopidogrel Bisulfate 75 MG Tablet PO (11:47)
[2022-10-03] VITALS (15 sets, daily range): BP systolic 152–191; BP diastolic 85–95; PULSE 79–91; RESP 16–21; TEMP 36.5–36.7; O2SAT 97–99
[2022-10-03] MEDS: Methylprednisolone Sod Succ 40 MG/ML VIAL IV ×3 (06:16→20:10)
[2022-10-03] MEDS: hydrALAZINE 10 MG Tablet 20 MG PO (06:17)
[2022-10-03] MEDS: Acetaminophen 325 MG Tablet 650 MG PO ×3 (06:18→20:15)
[2022-10-03] MEDS: Ipratropium/Albuterol Sulfate 3 ML AMPUL.NEB INHALATION ×5 (07:36→22:50)
[2022-10-03] MEDS: Aspirin E.C. 81 MG Tablet PO (07:37)
--- NOTE | 2022-10-03 10:10 | PCM.PN.HOSP ---
Reason for Visit Reason for Visit: Diagnoses Acute bronchitis, unspecified (10/02/22) Unspecified chronic bronchitis (10/02/22) Dyspnea, unspecified (10/02/22) Objective Data Objective Data Vital Signs: Vital Signs Temp Pulse Resp BP Pulse Ox O2 Del Method 97.7 F L 79 16 166/87 H 97 Room Air 10/03/22 08:11 10/03/22 08:11 10/03/22 08:11 10/03/22 08:11 10/03/22 08:11 10/03/22 08:16 Oxygen Delivery Method Room Air Weight: 212 lb 1.355 oz Body Mass Index (BMI) 37.5 Intake & Output: Intake and Output for Last 24 Hours 10/01/22 10/02/22 10/03/22 23:59 23:59 23:59 Intake Total 1730 / 1730 255 / 255 Balance 1730 / 1730 255 / 255 Lab / Micro Data 10/02/22 05:42 10/02/22 05:42 Physical Exam Narrative Seen and examined. Patient complaining that she has worsening of shortness of breath as compared to yesterday. She gets short of breath even going to bathroom. Requested pulmonary consult. She follows Dr. Benoit General: Alert, Oriented x3, Cooperative HEENT: Atraumatic, PERRLA, EOMI, Normocephalic Oral: Oral Moist. No Gingival or Mucosal Lesions/ Ulcerations Neck: Supple, No JVD, Negative Carotid Bruits Lungs: Air entry diminished in bilateral lung bases. Mild bilateral expiratory rhonchi. No hypoxia. Cardiovascular: Regular rate, Regular Rhythm, Normal S1, Normal S2, No murmurs Abdomen: Bowel Sounds Present, Soft, Non Tender, Non-Distended : No renal angle tenderness. No suprapubic tenderness. Extremities: No edema, Capillary Refill Less than 3 Seconds Skin: No rashes, No breakdown Musculoskeletal: No Tenderness to Palpation of Joints or Extremities. Bilateral knee and hip joint arthritis. Neurological: Cranial nerves II-XII grossly intact, DTR 2+/4 and Symmetrical, Neuro grossly intact Psych/Mental Status: Flat affect. Assessment & Plan Assessment/Plan (1) Chronic bronchitis with acute exacerbation: PLAN: Plan 62-year-old female admitted with shortness of breath which is worsening despite being on prednisone, DuoNeb, inhaler and antibiotics for past few days. She also has greenish sputum and dyspnea on mild exertion. 1. COPD exacerbation: Patient has chronic bronchitis. Patient is being admitted on [facility] floor. Chest x-ray individually reviewed and does not show evidence of acute cardiopulmonary abnormality. Twelve-lead EKG individually reviewed is normal sinus rhythm 72 bpm. Patient is on DuoNeb nebulization, IV Solu-Medrol, azithromycin, incentive spirometry Pep and Mucinex. Discontinue IV ceftriaxone. Patient has cigarette smoking history, quit in May 2022. 10/03/2022. States she gets short of breath even going to bathroom. Discussed with the commercial helicopter pilot in consult reviewed and appreciated. Antibiotic changed to Levaquin 500 mg daily, total of 5 doses. Azithromycin discontinued. 2. CAD, history of non-STEMI status post stent, paroxysmal A-fib, aortic stenosis, peripheral arterial disease with infrarenal AAA, left subclavian artery stenosis and bilateral carotid artery stenosis without cerebral infarction: Patient on baby aspirin, carvedilol, clopidogrel, furosemide and hydralazine. Home medications continued. Patient not on oral anticoagulation. 10/03: Patient does not have chest pain/pressure. Had cardiac stent as an outpatient and RCA in May 2022 and circumflex in September 16. Patient also had a stent in left subclavian artery. Dr. 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 Discussed with the boiler maker Dr. Santoyo. No indication for doing troponin or further work-up. Initial EKG showed no ischemic changes with normal NE and QTc interval, sinus rhythm 72 bpm. Patient can see her boiler maker as an outpatient. 3. Hypertension, dyslipidemia, with statin intolerance: BP is controlled. Patient could not have statin. Discussed other options including Zetia, fenofibrate and vascepa VTE prophylaxis high risk: Patient does not want enoxaparin as she thinks put on the extra risk for bleeding. She has IV line in the leg but she states she is walking. Left leg SCD. Charges/Coding Visit Charges Inpatient E&M: 18200 Subs Hosp L2
[2022-10-03] MEDS: Carvedilol 12.5 MG Tablet PO ×2 (10:13→20:09)
[2022-10-03] MEDS: Furosemide 20 MG Tablet PO (10:13)
[2022-10-03] MEDS: DiphenhydrAMINE 12.5 MG/5 ML UDC PO (11:14)
[2022-10-03] MEDS: Clopidogrel Bisulfate 75 MG Tablet PO (11:14)
[2022-10-03] MEDS: guaiFENesin/D-Methorphan TAB.SR.12H 2 TABLET PO ×2 (11:15→20:08)
--- NOTE | 2022-10-03 11:31 | NURSING ---
ambulated pt in xiao, per Dr. islas. pulse ox stayed steady @ 97-98%, pulse was tachy @ 102-106. Pt had audible wheezes while ambulating.
--- NOTE | 2022-10-03 12:21 | EX.PCM.CONCC ---
Assessment & Plan Assessment/Plan (1) Chronic bronchitis with acute exacerbation: PLAN: Plan RECOMMENDATIONS: 1. Transition to Levaquin to complete an additional 5 days of therapy. 2. Continue bronchodilators and steroids. 3. At discharge, please send home with prednisone 40 mg daily x5 days. 4. Perform ambulatory oximetry prior to discharge. 5. Will defer need for cardiac work-up to hospitalist discretion. 6. Outpatient pulmonary follow-up as scheduled. 7. We will sign off. Please call with any additional questions. IMPRESSIONS: 1. Shortness of breath in the setting of COPD/chronic bronchitis The patient presented to the hospital and was admitted with progressive shortness of breath after being placed on appropriate outpatient therapy on September 30 for an exacerbation. The patient is not currently hypoxemic, neither at rest or with exertion. Her chest imaging did not demonstrate any acute cardiopulmonary process. She has been maintained on bronchodilators, steroids and antimicrobials. At this time, I do not see any pulmonary explanation for her continued shortness of breath. She does have a recent history of coronary artery disease status post angioplasty and stenting. Therefore, a cardiac etiology is a possibility. At this time, I think it is reasonable to transition the patient to Levaquin to complete an additional 5 days of therapy. She can resume her baseline inhaler therapy at discharge. The patient should follow-up in the pulmonary medicine clinic with Dr. Degroot as scheduled. 2. History of coronary artery disease/paroxysmal atrial fibrillation/peripheral artery disease Continue baseline outpatient cardiac regimen. In light of the patient's ongoing shortness of breath, despite the lack of hypoxemia or acute radiographic changes that would account for her dyspnea, may need to consider cardiac evaluation. 3. History of tobacco dependency in remission/hypertension/hyperlipidemia/obesity Complicates care, management, recovery and prognosis. Continue home medications as indicated. This note was generated with [employer] software. It may contain incorrect words, spelling, and punctuation that were not noted in checking the note before signing. HPI Consult Data Date of Consult: 10/03/22 HPI Narrative Reason for Consultation: Shortness of breath HPI Narrative: The patient is a 62-year-old female, with a history as outlined below, who presented to the emergency department on October 02 with progressive shortness of breath. The patient is currently followed in the pulmonary medicine clinic by Dr. Degroot due to a history of COPD/chronic bronchitis. Pulmonary function studies completed in August 2022 only demonstrated a mild obstructive ventilatory impairment. The patient does have an extensive tobacco abuse history, having quit completely in May 2022. The patient was evaluated in the pulmonary medicine clinic on September 30 and was placed on antimicrobials and prednisone for a presumptive exacerbation. The patient also reports a history of coronary artery disease, having recently been evaluated by an outside claims support specialist, with angioplasty and stenting in the last month. On presentation to the emergency department, the patient was noted to be afebrile and hemodynamically stable. She was maintaining appropriate oxygen saturations on room air. Initial laboratory evaluation revealed a white blood cell count of 16,000, likely secondary to her outpatient use of prednisone. Chemistry profile was unrevealing. Chest x-ray demonstrated no acute cardiopulmonary process. Rapid COVID testing and respiratory viral panel are currently pending. The patient was able to ambulate in the hallway with the nursing staff without significant oxygen desaturation. The patient is currently being maintained on scheduled bronchodilators, IV steroids and antimicrobials. [facility] Medical History Aortic stenosis Bilateral carotid artery stenosis without cerebral infarction Chronic bronchitis with acute exacerbation Coronary artery disease CVA (cerebral vascular accident) Hypertension Infrarenal abdominal aortic aneurysm (AAA) without rupture Mixed hyperlipidemia Non-STEMI (non-ST elevated myocardial infarction) (~06/23/22) Paroxysmal A-fib Peripheral vascular disease Statin intolerance Subclavian artery stenosis, left Tobacco dependence due to cigarettes Home Medications acetaminophen 325 mg tablet (Tylenol) 325 - 650 mg PO Q6H PRN Pain 08/02/22 [History Last Taken Unknown] aspirin 81 mg tablet 81 mg PO DAILY blood thinner 08/02/22 [History Last Taken 10/01/22] carvedilol 12.5 mg tablet 12.5 mg PO BID heart 08/02/22 [History Last Taken 10/01/22] furosemide 20 mg tablet (Lasix) 20 mg PO DAILY Edema 08/02/22 [History Last Taken 10/01/22] albuterol sulfate 90 mcg/actuation aerosol inhaler 2 puff inhalation Q4H PRN shortness of breath or wheezing 09/05/22 [History Last Taken Unknown] benzonatate 100 mg capsule 200 mg PO TID PRN cough 09/05/22 [History Last Taken Unknown] clopidogrel 75 mg tablet 75 mg PO DAILY blood thinner 09/05/22 [History Last Taken 10/01/22] ipratropium bromide 21 mcg (0.03 %) nasal spray 2 spray intranasal BID PRN sinusits #30 mL 09/05/22 [Rx Last Taken 10/01/22] amoxicillin 875 mg-potassium clavulanate 125 mg tablet 1 tab PO BID atb #10 tabs 09/30/22 [Rx Last Taken 10/01/22] budesonide 160 mcg-glycopyr 9 mcg-formot 4.8 mcg/actuation HFA inhaler (Breztri Aerosphere) 2 inh inhalation BID resp #10.7 grams 09/30/22 [Rx Last Taken 10/01/22] hydralazine 10 mg tablet 10 mg PO TID bp 09/30/22 [History Last Taken 10/01/22] ipratropium 0.5 mg-albuterol 3 mg (2.5 mg base)/3 mL nebulization soln 3 ml inhalation Q4H PRN PRN SOB &/OR WHEEZING #180 mL 09/30/22 [Rx Last Taken 10/01/22] prednisone 10 mg tablet 10 mg PO QDAY steriod #30 tabs 09/30/22 [Rx Last Taken 10/01/22] Allergy/AdvReac Type Severity Reaction Status Date / Time morphine Allergy Rash Verified 10/01/22 22:07 niacin Allergy Pain in Verified 10/01/22 22:07 joints Surgical History History of heart artery stent (~08/2022) Postsurgical percutaneous transluminal coronary angioplasty (PTCA) status Stented coronary artery Social History Smoking Status: Former smoker quit date: 06/08/22 alcohol intake: current alcohol intake frequency: holidays/special occasions only substance use type: does not use ROS ROS Narrative 10 systems were reviewed with pertinent positives as noted in the HPI above. Physical Exam Const alert, oriented x3 and no apparent distress Constitutional Narrative: Sitting in bedside recliner. Obese. HEENT normocephalic, head/scalp atraumatic and moist oral mucous membranes Eyes PERRL, EOMs intact bilaterally and conjunctivae normal Neck supple General: trachea midline Chest inspection of chest normal Resp normal respiratory effort Auscultation: diminished lung sounds; Negative for rales, rhonchi or wheezes Cardio regular rate and regular rhythm GI normal to inspection, nondistended, normoactive bowel sounds Extremity no clubbing, cyanosis or edema Skin no rashes or lesions noted Neuro oriented x3, CN's II-XII intact bilaterally and moves all extremities Psych Mood & Affect: anxious Lab / Micro Data 10/02/22 05:42 10/02/22 05:42 Micro: Microbiology 10/03/22 11:37 Nasal Secretion SARS-CoV-2 Antigen (Rapid) - Final Charges/Coding Visit Charges Inpatient E&M: 42590 Init Hosp L2
--- NOTE | 2022-10-03 13:45 | CASEMGMT ---
RN?CM?OPERATIONS/DISPATCH?CM?to room to meet with patient for initial transition planning/care coordination?assessment.?RN?CM?introduced self and role at [facility].? Pt voices understanding and consents to?assessment?at this time.? Pt sitting up in chair in room in no distress at this time.? Pt is A/O at this time and answers all questions appropriately.?? Care providers, pharmacy, and demographics verified/updated at this time. PCP: Dr Amado Coulter @ [facility] Practice Specialists: Dr Degroot and Asia Mojica/ICER MACHINE OPERATOR--pulmonology. Dr Casanova-clinical lab clerk in [place] Preferred Pharmacy: [facility] Retail Insurance: Prescription Benefit:?Yes Living Will/HPOA:?Has done both LW and HCPOA, who is her , Rashard. LNOK: . 2 children Living Arrangements: Lives w/ in one-story home w/1-3 steps to enter. Indep w/ADL's and IADL's. Transportation:?Pt states drives self and states no transportation concerns at this time.? also drives. DME: States has the following DME:?nebulizer, pulse ox. No home O2. ?Pt states no need for further DME at this time.? HHC/SNF: No hx of SNF. Had HHC in 2005. Declines needs for HHC and no needs identified. Pt is active w/[facility] Cardiac Rehab and wishes to resume w/them after discharge. Pt wishes to return home and states has no concerns with going home at time of discharge.?CM?to follow for any discharge planning/needs.? Pt voices no concerns/needs at this time.? Advised pt to ask for?CM?if any questions/concerns/needs arise.? Voices understanding. PLAN:??Home w/resumption of Cardiac Rehab @ [facility] Vincenzo REIDN?RN?CM
[2022-10-03] MEDS: hydrALAZINE 10 MG Tablet PO ×2 (14:14→20:09)
[2022-10-03] MEDS: 0.9% Saline Lock 10 ML Syringe IV (14:16)
[2022-10-03] MEDS: levoFLOXacin 500 MG Tablet PO (14:16)
[2022-10-03] MEDS: hydrALAZINE 20 MG/ML Vial 10 MG IV (23:09)
[2022-10-04] VITALS (9 sets, daily range): BP systolic 162–184; BP diastolic 80–86; PULSE 76–105; RESP 16–28; TEMP 36.3–36.8; O2SAT 95–97
[2022-10-04] MEDS: Ipratropium/Albuterol Sulfate 3 ML AMPUL.NEB INHALATION ×3 (03:38→11:29)
[2022-10-04] MEDS: hydrALAZINE 10 MG Tablet 20 MG PO (05:34)
[2022-10-04] MEDS: Methylprednisolone Sod Succ 40 MG/ML VIAL IV (05:35)
--- NOTE | 2022-10-04 06:55 | DCINST_ITS ---
Discharge Instructions Diet Discharge Diet: No restrictions Activity Discharge Activity: Return to Normal Activity Weight Bearing Status: Weight bearing as tolerated Dressing / Incision Call your doctor if you observe: Fever of 101 or Higher, Coldness, Increased Pain, Numbness or Tingling, Change in Color, Inability to urinate, Inability to have a bowel movement, Using more than 1 pad per hour, Shortness of breath, Dizziness, Fainting spells, Swelling in the ankles, Chest pain, Prolonged hiccupping, Increased palpitations (irregular heartbeat) and Calf discomfort Follow Up Care When: IN 2 WEEKS Test Results: Test results from this visit will be discussed in further detail at your follow- up appointment, if applicable. Discharge Plan Admission Admit Date/Time: 10/02/22 00:54 Primary Reason for Your Visit: COPD exacerbation Attending Provider: Jose Luis Lopez Primary Care Provider: Amado Coulter Consulting Providers: Ranjan Scott; Ludin Limon; Reji Woodard; Sabino Degroot; Joel Quach; Asia Kraus [employer] Discharge Orders/Prescriptions Prescriptions: New levofloxacin 500 mg Tablet 500 mg PO DAILY 3 Days Qty: 3 0RF Mucinex DM 30-600 mg Tablet Extended Release 12 Hr 2 tab PO BID 7 Days Qty: 28 0RF prednisone 20 mg tablet 40 mg PO DAILY 5 Days Qty: 10 0RF Continued benzonatate 100 mg capsule 200 mg PO TID PRN (Reason: cough) Hold Instructions: MD Ordered Patient Comments: Take 2 capsules by mouth three times daily as needed for up to 7 days. albuterol sulfate 90 mcg/actuation HFA aerosol inhaler 2 puff inhalation Q4H PRN (Reason: shortness of breath or wheezing) Patient Comments: Inhale 2 Puffs as instructed every 4 hours as needed for wheezing/shortness of breath. With spacer clopidogrel 75 mg tablet 75 mg PO DAILY Patient Comments: TAKE 1 TABLET BY MOUTH EVERY DAY ipratropium bromide 21 mcg (0.03 %) spray,non-aerosol 2 spray intranasal BID MDD 4 puffs PRN (Reason: sinusits) Qty: 30 5RF Rx Instructions: administer into each nostril hydralazine 10 mg tablet 10 mg PO TID Rx Instructions: 20mg in the morning and 10 in the afternoon. and 10 in the evening. ipratropium-albuterol 0.5 mg-3 mg(2.5 mg base)/3 mL solution for nebulization 3 ml inhalation Q4H PRN PRN (Reason: SOB &/OR WHEEZING) Qty: 180 6RF Breztri Aerosphere 160-9-4.8 mcg/actuation HFA aerosol inhaler 2 inh inhalation BID Qty: 10.7 6RF furosemide [Lasix] 20 mg Tablet 20 mg PO DAILY acetaminophen [Tylenol] 325 mg Tablet 325 - 650 mg PO Q6H PRN (Reason: Pain) carvedilol 12.5 mg Tablet 12.5 mg PO BID Rx Instructions: must administer with a meal/food aspirin 81 mg Tablet 81 mg PO DAILY Discontinued amoxicillin-pot clavulanate 875-125 mg tablet 1 tab PO BID Qty: 10 0RF prednisone 10 mg tablet 10 mg PO QDAY Qty: 30 0RF Rx Instructions: take 4 tabs for three days, then 3 tabs for three days, then 2 tabs for three days, then 1 tab for 3 days Referrals / Follow Up: Amado Coulter MD [Primary Care Provider] - Sabino Degroot MD [Med Staff - Active Staff] - Within 1 Month Disposition Disposition (needs filled in before D/C Order can be placed): Home, Self Care
--- NOTE | 2022-10-04 07:00 | ECHOCS_ITS ---
Reason For Study: s/p CABG Procedure This was a 2D Doppler, Color Flow transthoracic echocardiogram. The study was technically difficult. Contrast injection was performed. Exam performed portable in patient room. Left Ventricle Normal LV size. Left ventricular systolic function is normal. The estimated ejection fraction is 65 %. Diastolic function is indeterminate. Right Ventricle Normal RV size. Normal systolic function. Atria Normal left atrium. Normal right atrium. Mitral Valve Moderate mitral annular calcification. Mild restriction of the mitral valve. Mild (1+) mitral valve insufficiency. Tricuspid Valve Normal tricuspid valve. Trivial tricuspid valve insufficiency. Unable to estimate RV systolic pressure due to insufficient tricuspid regurgitant envelope. Aortic Valve Trisinus/trileaflet aortic valve. Mild focal aortic valve thickening. There is no aortic stenosis. No aortic valve insufficiency. Pulmonic Valve Normal pulmonic valve. Great Vessels Normal aortic root. Pericardium/Pleural No pericardial effusion. Medication Diluted definity 1.5ml given slow IV push to enhance endocardial definition. MMode/2D Measurements & Calculations LVIDd: 4.1 cm IVSd: 1.2 cm LVOT diam: 1.6 cm LVIDs: 2.6 cm LVPWd: 1.1 cm FS: 36.2 % LVOT area: 2.0 cm2 Ao root diam: 3.0 cm LAV(MOD-bp): 60.4 ml LA A4 area: 20.1 cm2 LA dimension: 4.4 cm LAV(MOD-bp) Indexed: 30.5 ml/m2 LAV(MOD-sp2): 64.2 ml LAV(MOD-sp4): 55.5 ml Time Measurements MV dec time: 0.31 sec Doppler Measurements & Calculations MV E max blaine: 156.2 cm/sec Lat Peak E' Blaine: 8.1 cm/sec Med Peak E' Blaine: 6.5 cm/sec MV A max blaine: 174.8 cm/sec E/E' lat: 19.2 E/E' med: 24.1 MV E/A: 0.89 MV V2 max: 200.9 cm/sec MV P1/2t max blaine: 159.8 cm/sec Ao V2 max: 172.2 cm/sec MV max P.1 mmHg MV P1/2t: 91.4 msec Ao max P.9 mmHg MV V2 mean: 116.2 cm/sec MV dec slope: 512.3 cm/sec2 Ao V2 mean: 104.0 cm/sec MV mean P.2 mmHg Ao mean P.1 mmHg MV V2 VTI: 48.4 cm MVA(P1/2t): 2.4 cm2 Ao V2 VTI: 35.9 cm MVA(VTI): 1.5 cm2 AV (velocity ratio): 1.0 AMY(I,D): 2.1 cm2 AMY(V,D): 1.9 cm2 LV V1 max: 157.5 cm/sec MR max blaine: 555.3 cm/sec SV(LVOT): 73.5 ml LV V1 max P.9 mmHg MR max P.3 mmHg LV V1 mean P.9 mmHg LV V1 mean: 103.3 cm/sec LV V1 VTI: 36.3 cm PA V2 max: 133.1 cm/sec PA V2 mean: 95.9 cm/sec ECHO/Echo Complete W/ Contrast Interpretation Summary Technically difficult study. Contrast injection was performed. The estimated ejection fraction is 65 %. Moderate mitral annular calcification. Mild (1+) mitral valve insufficiency. Trivial tricuspid valve insufficiency. Mild focal aortic valve thickening. Ordering Physician: Jose Luis Lopez Referring Physician: Ranjan Scott Performed By: Romaine Saenz and Student
[2022-10-04] MEDS: Furosemide 20 MG Tablet PO (10:38)
[2022-10-04] MEDS: Aspirin E.C. 81 MG Tablet PO (10:38)
[2022-10-04] MEDS: DiphenhydrAMINE 12.5 MG/5 ML UDC PO (10:38)
[2022-10-04] MEDS: levoFLOXacin 500 MG Tablet PO (10:38)
[2022-10-04] MEDS: Carvedilol 12.5 MG Tablet PO (10:38)
[2022-10-04] MEDS: guaiFENesin/D-Methorphan TAB.SR.12H 2 TABLET PO (10:39)
[2022-10-04] MEDS: Clopidogrel Bisulfate 75 MG Tablet PO (10:39)
[2022-10-04] MEDS: Acetaminophen 325 MG Tablet 650 MG PO (10:41)
[2022-10-04] MEDS: hydrALAZINE 20 MG/ML Vial 10 MG IV (10:59)
[2022-10-04] MEDS: 0.9% Saline Lock 10 ML Syringe IV (11:00)
--- NOTE | 2022-10-04 12:14 | DS.PCM_ITS ---
Providers Date of Admission: 10/02/22 Date of Discharge: 10/04/22 Primary Care Physician: Dr. Amado Coulter MD Consultations 10/03/22 10:30 Consult: Manager Transmission / Pulmonary Medicine Routine Consulting Provider: Pulmonary Medicine morena Dixon Reason for Consult: copd exa EMERGENT Consult: No Notified: Yes Date Notified: 10/03/22 Time Notified: 10:30 Method of Notification: Text Reason For Visit: COPD EXACERBATION Diagnosis Discharge Diagnosis (1) Chronic bronchitis with acute exacerbation: Status: Chronic Code(s): J20.9 - Acute bronchitis, unspecified; J42 - Unspecified chronic bronchitis Plan 62-year-old female admitted with shortness of breath which is worsening despite being on prednisone, DuoNeb, inhaler and antibiotics for past few days. She also has greenish sputum and dyspnea on mild exertion. 1. COPD exacerbation: Patient has chronic bronchitis. [facility] Chest x-ray individually reviewed and does not show evidence of acute cardiopulmonary abnormality. Twelve-lead EKG individually reviewed is normal sinus rhythm 72 bpm. Patient is on DuoNeb nebulization, IV Solu-Medrol, azithromycin, incentive spirometry Pep and Mucinex. Discontinue IV ceftriaxone. Patient has cigarette smoking history, quit in May 2022. 10/03/2022. States she gets short of breath even going to bathroom. Discussed with the human resources services specialist in consult reviewed and appreciated. Antibiotic changed to Levaquin 500 mg daily, total of 5 doses. Azithromycin discontinued. 10/04: Patient shortness of breath has improved. She still says she gets short of breath after I leave the room. After some time, not said that patient having leg cramps. Patient had normal BMP yesterday. BMP ordered. Patient is discharged home Levaquin for 3 more days to complete total of 5 days and prednisone burst therapy for 5 days. Patient already has inhaler at home. Advised to follow with human resources services specialist Dr. Benoit. 2. CAD, history of non-STEMI status post stent, paroxysmal A-fib, aortic stenosis, peripheral arterial disease with infrarenal AAA, left subclavian artery stenosis and bilateral carotid artery stenosis without cerebral infarction: Patient on baby aspirin, carvedilol, clopidogrel, furosemide and hydralazine. Home medications continued. Patient not on oral anticoagulation. 10/03: Patient does not have chest pain/pressure. Had cardiac stent as an outpatient and RCA in May 2022 and circumflex in September 16. Patient also had a stent in left subclavian artery. Dr. Saldivar is her director behavioral health. Discussed with the director behavioral health Dr. Santoyo. No indication for doing troponin or further work-up. Initial EKG showed no ischemic changes with normal ME and QTc interval, sinus rhythm 72 bpm. Patient can see her director behavioral health as an outpatient. 09/30: Patient follows Dr. Yariel Casanova her director behavioral health. 2D echo was done. Report is pending. 3. Hypertension, dyslipidemia, with statin intolerance: BP is controlled. Patient could not have statin. Discussed other options including Zetia, fenofibrate and vascepa VTE prophylaxis high risk: Patient does not want enoxaparin as she thinks put on the extra risk for bleeding. She has IV line in the leg but she states she is walking. Left leg SCD. Medications at Discharge Home Medications acetaminophen 325 mg tablet (Tylenol) 325 - 650 mg PO Q6H PRN Pain 08/02/22 aspirin 81 mg tablet 81 mg PO DAILY blood thinner 08/02/22 carvedilol 12.5 mg tablet 12.5 mg PO BID heart 08/02/22 furosemide 20 mg tablet (Lasix) 20 mg PO DAILY Edema 08/02/22 albuterol sulfate 90 mcg/actuation aerosol inhaler 2 puff inhalation Q4H PRN shortness of breath or wheezing 09/05/22 benzonatate 100 mg capsule 200 mg PO TID PRN cough 09/05/22 clopidogrel 75 mg tablet 75 mg PO DAILY blood thinner 09/05/22 ipratropium bromide 21 mcg (0.03 %) nasal spray 2 spray intranasal BID PRN sinusits #30 mL 09/05/22 budesonide 160 mcg-glycopyr 9 mcg-formot 4.8 mcg/actuation HFA inhaler (Breztri Aerosphere) 2 inh inhalation BID resp #10.7 grams 09/30/22 hydralazine 10 mg tablet 10 mg PO TID bp 09/30/22 ipratropium 0.5 mg-albuterol 3 mg (2.5 mg base)/3 mL nebulization soln 3 ml inhalation Q4H PRN PRN SOB &/OR WHEEZING #180 mL 09/30/22 dextromethorphan-guaifenesin 30 mg-600 mg tablet extended [id number] hr (Mucinex DM) 2 tab PO BID 7 days #28 tabs 10/04/22 levofloxacin 500 mg tablet 500 mg PO DAILY 3 days #3 tabs 10/04/22 prednisone 20 mg tablet 40 mg (2 x 20 mg) PO DAILY 5 days #10 tabs 10/04/22 Physical Exam Narrative Seen and examined. The shortness of breath is better. No chest pain or pressure. Physical exam General: Alert, Oriented x3, Cooperative HEENT: Atraumatic, PERRLA, EOMI, Normocephalic Oral: Oral Moist. No Gingival or Mucosal Lesions/ Ulcerations Neck: Supple, No JVD, Negative Carotid Bruits Lungs: Air entry diminished in bilateral lung bases. Mild bilateral expiratory rhonchi. No hypoxia. Cardiovascular: Regular rate, Regular Rhythm, Normal S1, Normal S2, No murmurs Abdomen: Bowel Sounds Present, Soft, Non Tender, Non-Distended : No renal angle tenderness. No suprapubic tenderness. Extremities: No edema, Capillary Refill Less than 3 Seconds Skin: No rashes, No breakdown Musculoskeletal: No Tenderness to Palpation of Joints or Extremities. Bilateral knee and hip joint arthritis. Neurological: Cranial nerves II-XII grossly intact, DTR 2+/4 and Symmetrical, Neuro grossly intact Psych/Mental Status: Flat affect. Weight / BMI Weight Weight: 212 lb 1.355 oz Body Mass Index (BMI) 37.5 ABG / Lab / Microbiology Data 10/02/22 05:42 10/02/22 05:42 Microbiology: Microbiology 10/03/22 11:37 Mucosa - Nasopharyngeal Respiratory Panel (PCR) - Final 10/03/22 11:37 Nasal Secretion SARS-CoV-2 Antigen (Rapid) - Final D/C Instructions Discharge Diet: No restrictions Weight Bearing Status: Weight bearing as tolerated Call your doctor if you observe: Fever of 101 or Higher, Coldness, Increased Pain, Numbness or Tingling, Change in Color, Inability to urinate, Inability to have a bowel movement, Using more than 1 pad per hour, Shortness of breath, Dizziness, Fainting spells, Swelling in the ankles, Chest pain, Prolonged hiccupping, Increased palpitations (irregular heartbeat) and Calf discomfort When: IN 2 WEEKS Meaningful Use Info Meaningful Use Diagnoses (Choose all that apply): None applicable Discharge Plan Admission Admit Date/Time: 10/02/22 00:54 Primary Reason for Your Visit: COPD exacerbation Attending Provider: Jose Luis Lopez Primary Care Provider: Amado Coulter Consulting Providers: Ranjan Scott; Ludin Limon; Reji Woodard; Sabino Degroot; Joel Quach; Asia Kraus FISH TRAPPER Discharge Orders/Prescriptions Prescriptions: New levofloxacin 500 mg Tablet 500 mg PO DAILY 3 Days Qty: 3 0RF Mucinex DM 30-600 mg Tablet Extended Release 12 Hr 2 tab PO BID 7 Days Qty: 28 0RF prednisone 20 mg tablet 40 mg PO DAILY 5 Days Qty: 10 0RF Continued benzonatate 100 mg capsule 200 mg PO TID PRN (Reason: cough) Hold Instructions: MD Ordered Patient Comments: Take 2 capsules by mouth three times daily as needed for up to 7 days. albuterol sulfate 90 mcg/actuation HFA aerosol inhaler 2 puff inhalation Q4H PRN (Reason: shortness of breath or wheezing) Patient Comments: Inhale 2 Puffs as instructed every 4 hours as needed for wheezing/shortness of breath. With spacer clopidogrel 75 mg tablet 75 mg PO DAILY Patient Comments: TAKE 1 TABLET BY MOUTH EVERY DAY ipratropium bromide 21 mcg (0.03 %) spray,non-aerosol 2 spray intranasal BID MDD 4 puffs PRN (Reason: sinusits) Qty: 30 5RF Rx Instructions: administer into each nostril hydralazine 10 mg tablet 10 mg PO TID Rx Instructions: 20mg in the morning and 10 in the afternoon. and 10 in the evening. ipratropium-albuterol 0.5 mg-3 mg(2.5 mg base)/3 mL solution for nebulization 3 ml inhalation Q4H PRN PRN (Reason: SOB &/OR WHEEZING) Qty: 180 6RF Breztri Aerosphere 160-9-4.8 mcg/actuation HFA aerosol inhaler 2 inh inhalation BID Qty: 10.7 6RF furosemide [Lasix] 20 mg Tablet 20 mg PO DAILY acetaminophen [Tylenol] 325 mg Tablet 325 - 650 mg PO Q6H PRN (Reason: Pain) carvedilol 12.5 mg Tablet 12.5 mg PO BID Rx Instructions: must administer with a meal/food aspirin 81 mg Tablet 81 mg PO DAILY Discontinued amoxicillin-pot clavulanate 875-125 mg tablet 1 tab PO BID Qty: 10 0RF prednisone 10 mg tablet 10 mg PO QDAY Qty: 30 0RF Rx Instructions: take 4 tabs for three days, then 3 tabs for three days, then 2 tabs for three days, then 1 tab for 3 days Referrals / Follow Up: Amado Coulter MD [Primary Care Provider] - Sabino Degroot MD [Med Staff - Active Staff] - Within 1 Month Disposition Disposition (needs filled in before D/C Order can be placed): Home, Self Care
[2022-10-04 13:46] LABS: Anion Gap 6 (5-15); BUN 21 mg/dL (7-18); BUN/Creat Ratio 21.4 RATIO (10-20); Calcium,Total 9.4 mg/dL (8.5-10.1); Chloride 104 mmol/L (98-107); Creatinine, Serum 0.98 mg/dL (0.55-1.02); EST Glomerular Filtration Rate 61 mL/min (>60); Est Glom Filt Rate - Afr Amer 74 mL/min (>60); Estimated Creatinine Clearance 49.87 ml/min; Glucose 131 mg/dL (74-106); Potassium 3.9 mmol/L (3.5-5.1); Sodium Level 136 mmol/L (136-145)
--- NOTE | 2022-10-04 15:39 | PHA.DC.MC.R ---
Pharmacy [facility] has performed discharge medication reconciliation and counseling for this patient. The patient was counseled on the following discharge medications and changes in medications for homegoing were reviewed. 1. MUCINEX 2. LEVOFLOXACIN 3. PREDNISONE The Reason for Use, instructions for use, and potential side effects were reviewed for all new medications. The patient's questions regarding all of their medications were answered. The patient was able to verbally demonstrate an understanding of their discharge medications. Counselling completed by Charli Link PharmD Candidate The patient's discharge medication list was reviewed for discrepancies and discrepancies were resolved. Medications at Discharge Home Medications acetaminophen 325 mg tablet (Tylenol) 325 - 650 mg PO Q6H PRN Pain 08/02/22 aspirin 81 mg tablet 81 mg PO DAILY blood thinner 08/02/22 carvedilol 12.5 mg tablet 12.5 mg PO BID heart 08/02/22 furosemide 20 mg tablet (Lasix) 20 mg PO DAILY Edema 08/02/22 albuterol sulfate 90 mcg/actuation aerosol inhaler 2 puff inhalation Q4H PRN shortness of breath or wheezing 09/05/22 benzonatate 100 mg capsule 200 mg PO TID PRN cough 09/05/22 clopidogrel 75 mg tablet 75 mg PO DAILY blood thinner 09/05/22 ipratropium bromide 21 mcg (0.03 %) nasal spray 2 spray intranasal BID PRN sinusits #30 mL 09/05/22 budesonide 160 mcg-glycopyr 9 mcg-formot 4.8 mcg/actuation HFA inhaler (Breztri Aerosphere) 2 inh inhalation BID resp #10.7 grams 09/30/22 hydralazine 10 mg tablet 10 mg PO TID bp 09/30/22 ipratropium 0.5 mg-albuterol 3 mg (2.5 mg base)/3 mL nebulization soln 3 ml inhalation Q4H PRN PRN SOB &/OR WHEEZING #180 mL 09/30/22 dextromethorphan-guaifenesin 30 mg-600 mg tablet extended iwyares42 hr (Mucinex DM) 2 tab PO BID 7 days #28 tabs 10/04/22 levofloxacin 500 mg tablet 500 mg PO DAILY 3 days #3 tabs 10/04/22 prednisone 20 mg tablet 40 mg (2 x 20 mg) PO DAILY 5 days #10 tabs 10/04/22
== END 2022-10-04 15:34 | disposition home or self-care (01) | DRG 192 ==
LOC: ED 10-02 00:42 → MS3 10-02 01:40
PROVIDERS: Admitting Provider Hospitalist; Emergency Provider Emergency Medicine; PCP Family Medicine; Referring Provider Hospitalist; Visit Provider Internal Medicine
DX: J44.1 Chronic obstructive pulmonary disease with (acute) exacerbation (principal); E66.9 Obesity, unspecified; I25.10 Atherosclerotic heart disease of native coronary artery without angina pectoris; I10 Essential (primary) hypertension; I08.0 Rheumatic disorders of both mitral and aortic valves; I25.2 Old myocardial infarction; E78.5 Hyperlipidemia, unspecified; Z87.891 Personal history of nicotine dependence; Z79.82 Long term (current) use of aspirin; Z95.5 Presence of coronary angioplasty implant and graft; Z86.73 Personal history of transient ischemic attack (TIA), and cerebral infarction without residual deficits; Z68.37 Body mass index [BMI] 37.0-37.9, adult
CPT/HCPCS: 36415; 71045; 80048; 80053; 80061; 83880; 84484; 85025; 87426; 87633; 93005; 93306; 94640; 94668; 99252; 99283; 99406; J7050; Q9957; A4216; C8929; G0463; J2405

== ENCOUNTER 2022-10-26 06:01 | Outpatient (RCR) | payer OTHER, SELFPAY ==
[2022-10-25 00:20] VITALS: BP 162/86
== END 2022-11-24 23:59 ==
LOC: CR 06:01
PROVIDERS: PCP Family Medicine
DX: I21.4 Non-ST elevation (NSTEMI) myocardial infarction (principal)
CPT/HCPCS: 93798